=== PATIENT | female | born 1970 | race African-American/Black ===

== ENCOUNTER 2020-10-04 02:19 | Emergency (ER) | payer SELFPAY ==
[2020-10-04 02:20] VITALS: BP 102/75; PULSE 95; RESP 18; TEMP 37; O2SAT 98
--- NOTE | 2020-10-04 02:32 | ECG_ITS ---
Measurements Intervals [place] Rate: 95 P: 67 PA: 141 QRS: -8 QRSD: 70 T: 30 QT: 353 QTc: 444 Interpretive Statements SINUS RHYTHM BORDERLINE T WAVE ABNORMALITY- ANT/INF LEADS BASELINE ARTIFACT- I, II, III, AVR, AVL, AVF, V2 BORDERLINE ECG Electronically Signed On 10-04-2020 8:53:18 SURG NURSE by Jay Dean D.O.
--- NOTE | 2020-10-04 02:35 | ED.SEIZURE ---
HPI - Seizure General Chief Complaint: Seizure Stated Complaint: seizure Time Seen by Provider: 10/04/20 02:26 History of Present Illness HPI Narrative: Patient 49-year-old female who presents to emergency department with chief complaint of seizure. Patient has prior history of a seizure disorder and is currently on Keppra. Per the EMS report the patient had 4 seizures today at home and this is more than she normally has. Patient family does report that she has been compliant with her medications report and use no new symptoms and reports that she is regaining conscious and is back to her baseline mental status Related Data Allergies Allergy/AdvReac Type Severity Reaction Status Date / Time No Known Drug Allergies Allergy Mild Verified 04/09/12 07:36 Review of Systems Review of Systems: Narrative: CONSTITUTIONAL: Denies fever, chills, or sweats. EYES: Denies visual changes, redness, or discharge. ENT: Denies rhinorrhea, congestion, sore throat, or otalgia. CARDIOVASCULAR: Denies chest pain, palpitations, or edema. RESPIRATORY: Denies cough or dyspnea. GASTROINTESTINAL: Denies abdominal pain, nausea, vomiting, or diarrhea. GENITOURINARY: Denies dysuria or hematuria. SKIN: Denies rash or itching. MUSCULOSKELETAL: Denies back pain, joint pain, or myalgia. NEUROLOGIC: Denies headache, numbness, or weakness. PSYCHIATRIC: Denies anxiety or depression. A 10 system review of systems was completed on the patient and is negative except for what is stated in the HPI. Nursing and ancillary documentation was reviewed. PMFSH Comments Past medical history significant for seizure disorder Social history the patient lives with family Exam Narrative: Exam Narrative: GENERAL: Well-appearing, well-nourished, and in no acute distress. HEAD: Normocephalic, atraumatic. EYES: PERRLA and EOMI. ENT: Nares clear, no rhinorrhea or epistaxis. Mucous membranes moist. NECK: Supple. CHEST: Clear to auscultation. No respiratory distress. HEART: Regular rate and rhythm. No murmur heard. Normal peripheral pulses. ABDOMEN: Soft, nontender, nondistended, normal active bowel sounds. EXTREMITIES: Normal range of motion. No edema. SKIN: Warm, dry, no rash. NEURO: No focal deficits. Alert and oriented x3. PSYCH: Normal mood and affect. Course Vital Signs Vital signs: Vital Signs Temperature 37.0 C 11/26/20 02:20 Pulse Rate 95 10/04/20 02:20 Respiratory Rate 18 10/04/20 02:20 Blood Pressure 102/75 10/04/20 02:20 Pulse Oximetry 98 10/04/20 02:20 Temperature 37.0 C 10/04/20 02:20 Pulse Rate 95 10/04/20 02:20 Respiratory Rate 18 10/04/20 02:20 Blood Pressure 102/75 10/04/20 02:20 Pulse Oximetry 98 10/04/20 02:20 MDM - Seizure Lab Data Result diagrams: 10/04/20 02:42 10/04/20 02:42 Labs: Lab Results 10/04/20 10/04/20 10/04/20 Range/Units 02:42 02:42 04:15 WBC 4.4 L (4.5-10.0) K/mm3 RBC 4.59 (4.2-5.4) M/mm3 Hgb 12.9 (12.0-15.0) g/dL Hct 38.6 (37.0-47.0) % MCV 84.1 (80-100) fl MCH 28.1 (26-34) pg MCHC 33.4 (32-36) g/dl RDW 12.3 (11.5-14.5) % Plt Count 187 (150-375) k/mm3 MPV 10.9 H (7.4-10.4) fl Immature Gran % (Auto) 0.2 (0-0.5) % Neut % (Auto) 41.0 L (45.5-73.1) % Lymph % (Auto) 44.2 (18.3-44.2) % [place] % (Auto) 13.5 H (2.6-8.5) % Eos % (Auto) 0.9 (0-4.4) % Baso % (Auto) 0.2 (0.2-1.2) % Lymph # (Auto) 1.93 (0.9-3.2) K/mm3 [place] # (Auto) 0.6 (0.1-0.6) K/mm3 Eos # (Auto) 0.0 (0-0.3) K/mm3 Baso # (Auto) 0.0 (0.0-0.1) K/mm3 Abs Immat Gran (auto) 0.01 (0.00-0.031) K/mm3 Absolute Neuts (auto) 1.8 (1.3-6.7) K/mm3 Absolute Nucleated RBC 0.0 (0.0-0.012) K/mm3 Nucleated RBC % 0.0 (0.0-0.2) % Sodium 142 (137-145) mmol/L Potassium 4.0 (3.4-5.0) mmol/L Chloride 106 (98-107) mmol/L Carbon Dioxide 30 (22-30) mmol/L Anion Gap 6 L (8-16) mm
[2020-10-04 02:48] LABS: Basophils Percent Auto 0.2 % (0.2-1.2); Eosinophils Percent Auto 0.9 % (0-4.4); Hematocrit 38.6 % (37.0-47.0); Hemoglobin 12.9 g/dL (12.0-15.0); Immature Granulocyte Absolute 0.01 K/mm3 (0.00-0.031); Immature Granulocyte Percent A 0.2 % (0-0.5); Lymphocytes Absolute Auto 1.93 K/mm3 (0.9-3.2); Lymphocytes Percent Auto 44.2 % (18.3-44.2); Mean Corpuscular HGB Conc 33.4 g/dl (32-36); Mean Corpuscular Hemoglobin 28.1 pg (26-34); Mean Corpuscular Volume 84.1 fl (80-100); Mean Platelet Volume 10.9 fl (7.4-10.4); Monocytes Absolute Auto 0.6 K/mm3 (0.1-0.6); Monocytes Percent Auto 13.5 % (2.6-8.5); Neutrophils Absolute Auto 1.8 K/mm3 (1.3-6.7); Platelet Count Result 187 k/mm3 (150-375); Red Blood Count 4.59 M/mm3 (4.2-5.4); Red Cell Distribution Width 12.3 % (11.5-14.5); White Blood Count 4.4 K/mm3 (4.5-10.0)
[2020-10-04 03:00] LABS: Alanine Aminotransferase 19 U/L (4-35); Albumin Level 4.2 g/dL (3.5-5.1); Alkaline Phosphatase 65 U/L (38-126); Anion Gap 6 mmol/L (8-16); Aspartate Amino Transferase 25 U/L (14-36); Bilirubin,Total 0.4 mg/dL (0.2-1.3); Blood Urea Nitrogen 14 mg/dL (7-17); Carbon Dioxide 30 mmol/L (22-30); Chloride 106 mmol/L (98-107); Estimated CRCL calculation 57 ml/min; Estimated Glomerular Filt Rate > 60; Glucose 108 mg/dL (65-105); Sodium 142 mmol/L (137-145)
[2020-10-04 04:33] LABS: Add Urine Microscopic? YES; Appearance Urine Clear (Clear); Bilirubin Urine Negative (Negative); Blood Urine Negative (Negative); Color Urine Straw (Yellow); Glucose Urine UA Negative (Negative); Ketones Urine Negative (Negative); Leukocyte Esterase Ur 3+ LEU/UL (Negative); Mucus Urine Rare /lpf; Nitrate Urine Negative (Negative); Protein Urine Negative (Negative); RBC Urine 0-2 /hpf (0-2); Specific Grav Ur 1.014 (1.001-1.035); Squamous Epithelial Cell Urine Few /hpf (Few); Urobilinogen Urine Negative mg/dL (<2.0)
[2020-10-04] MEDS: CEPHALEXIN 500 MG CAPSULE PO (04:56)
--- NOTE | 2020-10-04 04:59 | PC.NURSE ---
Cell number son gave EMS is for a yoel. [place] [employer] called, asked if could check for Annika Brown at [address] [facility] which is the address on the EMS report.
[2020-10-04 05:43] VITALS: BP 112/82; PULSE 78; RESP 16; O2SAT 99
== END 2020-10-04 05:44 | disposition home or self-care (01) ==
PROVIDERS: Emergency Provider Emergency Medicine
DX: G40.909 Epilepsy, unspecified, not intractable, without status epilepticus (principal); N39.0 Urinary tract infection, site not specified; R94.31 Abnormal electrocardiogram [ECG] [EKG]
CPT/HCPCS: 36415; 80053; 81001; 85025; 93005; 99283; A9270

== ENCOUNTER 2021-01-16 10:57 | Emergency (ER) | payer SELFPAY ==
[2021-01-16] VITALS (7 sets, daily range): BP systolic 86–103; BP diastolic 65–76; PULSE 80–95; RESP 17–18; TEMP 37.2; O2SAT 98–99
--- NOTE | ~2021-01-16 | CT_ITS ---
EXAMINATION: CT brain wo con EXAM DATE: 01/16/2021 11:51 INDICATION: Headache, progressing. TECHNIQUE: Spiral CT of the head was performed without contrast. Axial, coronal and sagittal images were reviewed. The dose-length product (DLP) for this examination was 529.67 mGy-cm. The exposure w as tailored according to patient size, and iterative reconstruction (ASIR) was used as additional dos e reduction technique. There is no prior study for comparison. FINDINGS: Moderate cerebellar atrophy. There is no acute intraparenchymal hemorrhage. No evidence of intraparenchymal brain mass lesion. No evidence of acute infarction. There is no mass effect or mi dline shift. The ventricles are normal in size. There are no extra-axial collections. There are no acute calvarial fractures. The orbits are unremarkable. Soft tissue is unremarkable. The visualize d sinuses and mastoid air cells are well aerated. IMPRESSION: 1. No acute intracranial findings. Reviewed, dictated and finalized at location B. R SALES MANAGER
--- NOTE | 2021-01-16 11:21 | ECG_ITS ---
Measurements Intervals [place] Rate: 80 P: 66 OR: 169 QRS: 24 QRSD: 74 T: 73 QT: 310 QTc: 358 Interpretive Statements SINUS RHYTHM RSR' IN V1 OR V2, CONSIDER RIGHT VENTRICULAR HYPERTROPHY OR RIGHT VCD NONSPECIFIC T-WAVE ABNORMALITY- ANTERIOR LEADS BASELINE ARTIFACT- I, II, III, AVR, AVL, AVF BORDERLINE ECG Electronically Signed On 01-16-2021 12:55:35 SED SPECIAL EDUCATION TEACHER by Jay Dean D.O.
[2021-01-16 11:51] LABS: Basophils Percent Auto 0.4 % (0.2-1.2); Eosinophils Percent Auto 0.6 % (0-4.4); Hematocrit 37.3 % (37.0-47.0); Hemoglobin 12.2 g/dL (12.0-15.0); Immature Granulocyte Absolute 0.01 K/mm3 (0.00-0.031); Immature Granulocyte Percent A 0.2 % (0-0.5); Lymphocytes Absolute Auto 1.46 K/mm3 (0.9-3.2); Lymphocytes Percent Auto 29.9 % (18.3-44.2); Mean Corpuscular HGB Conc 32.7 g/dl (32-36); Mean Corpuscular Hemoglobin 27.9 pg (26-34); Mean Corpuscular Volume 85.2 fl (80-100); Mean Platelet Volume 11.1 fl (7.4-10.4); Monocytes Absolute Auto 0.6 K/mm3 (0.1-0.6); Monocytes Percent Auto 12.3 % (2.6-8.5); Neutrophils Absolute Auto 2.8 K/mm3 (1.3-6.7); Neutrophils Percent Auto 56.6 % (45.5-73.1); Platelet Count Result 162 k/mm3 (150-375); Red Blood Count 4.38 M/mm3 (4.2-5.4); Red Cell Distribution Width 13.2 % (11.5-14.5); White Blood Count 4.9 K/mm3 (4.5-10.0)
--- NOTE | 2021-01-16 11:53 | PC.NURSE ---
Spoke with pt's son Annika Brown on the phone at [phone] for reasoning as to why pt is in ED today. Wants a full check up to make sure everything's okay and reports that the main reason is for her headache. States no family will be with her today in the ED, and that they would like a call when she is ready to be picked up.
[2021-01-16 12:03] LABS: Alanine Aminotransferase 24 U/L (4-35); Alkaline Phosphatase 61 U/L (38-126); Anion Gap 7 mmol/L (8-16); Aspartate Amino Transferase 24 U/L (14-36); Bilirubin,Total 0.3 mg/dL (0.2-1.3); Blood Urea Nitrogen 9 mg/dL (7-17); Calcium 9.7 mg/dL (8.4-10.2); Carbon Dioxide 28 mmol/L (22-30); Chloride 107 mmol/L (98-107); Estimated CRCL calculation 60 ml/min; Estimated Glomerular Filt Rate > 60; Glucose 116 mg/dL (65-105); Potassium 3.8 mmol/L (3.4-5.0); Sodium 142 mmol/L (137-145)
[2021-01-16 12:23] LABS: Add Urine Microscopic? NO; Appearance Urine Clear (Clear); Bilirubin Urine Negative (Negative); Blood Urine Negative (Negative); Color Urine Yellow (Yellow); Glucose Urine UA Negative (Negative); Ketones Urine Negative (Negative); Leukocyte Esterase Ur Negative LEU/UL (Negative); Nitrate Urine Negative (Negative); Protein Urine Negative (Negative); Specific Grav Ur 1.012 (1.001-1.035); Urobilinogen Urine Negative mg/dL (<2.0)
[2021-01-16 12:37] LABS: Amphetamine Screen Urine Negative (Negative); Barbiturate Screen Urine Negative (Negative); Benzodiazepines Screen Urine Negative (Negative); Cannabinoid Screen Urine Negative (Negative); Cocaine Screen Urine Negative (Negative); Methadone Screen Urine Negative (Negative); Opiate Screen Urine Negative (Negative); Phencyclidine Screen Urine Negative (Negative)
--- NOTE | 2021-01-16 12:46 | ED.GENADULT ---
HPI - General Adult General Chief complaint: Headache Stated complaint: HEADACHE Time Seen by Provider: 01/16/21 11:01 Source: patient Mode of arrival: EMS Limitations: other (Patient is poor historian and appears to have some mental limitations) History of Present Illness HPI narrative: Patient presents with chief complaint of having some headache that began yesterday. Patient's son called EMS, because he wanted her to be checked out. She reports some frontal headache when asked. Denies photophobia or vertigo. Patient has a history of seizures, but denies having recent seizures or increase. She states she has been taking her medications. She states sometimes she is drowsy and sits around a lot instead of being active. She denies extremity weakness, speech loss or changes, changes in vision or hearing or any other stroke like symptoms. She denies chest pain. fever, chills, cough, SOB, vomiting, or diarrhea. Related Data Home Medications Medication Instructions Recorded Confirmed citalopram mg 01/16/21 levetiracetam PO 01/16/21 Allergies Allergy/AdvReac Type Severity Reaction Status Date / Time No Known Drug Allergies Allergy Mild Verified 04/09/12 07:36 Review of Systems Review of Systems: Narrative: CONSTITUTIONAL: Denies fever, chills, or sweats. EYES: Denies visual changes, redness, or discharge. ENT: Denies rhinorrhea, congestion, sore throat, or otalgia. CARDIOVASCULAR: Denies chest pain, palpitations, or edema. RESPIRATORY: Denies cough or dyspnea. GASTROINTESTINAL: Denies abdominal pain, nausea, vomiting, or diarrhea. GENITOURINARY: Denies dysuria or hematuria. SKIN: Denies rash or itching. MUSCULOSKELETAL: Denies back pain, myalgia, or joint pain NEUROLOGIC: Reports headache and some fatigue Denies numbness, dizziness, or weakness. PSYCHIATRIC: Denies anxiety or depression. Exam Narrative: Exam Narrative: GENERAL: Well-appearing, well-nourished. HEAD: Normocephalic, atraumatic.No hematomas or lacerations. EYES: PERRLA and EOMI. ENT: Nares clear, no rhinorrhea or epistaxis. Mucous membranes moist. Oropharynx without tonsillar hypertrophy exudate or other lesions. Bilateral TMs pearly albarran nonbulging. No tongue or oral bleeding or sign of recent injury. NECK: Supple. No adenopathy or masses. No vertebral tenderness or loss of ROM. CHEST: Clear to auscultation. No respiratory distress. No wheezes rales or rhonchi HEART: Regular rate and rhythm. Normal peripheral pulses. ABDOMEN: Soft, nontender, nondistended, normal active bowel sounds. No bruises noted. EXTREMITIES: No acute changes in ROM. No edema. SKIN: Warm, dry, no rash. NEURO: No focal deficits. Moves all extremities with equal strength. No facial asymmetry. Alert to person and that she is in the hospital. Not sure why she was sent to the ER, besides son called Patient does not know the date. Patient speaks without difficulty. PSYCH: Normal mood and affect. Course Vital Signs Vital signs: Vital Signs Temperature 99 F 01/16/21 10:59 Pulse Rate 89 01/16/21 10:59 Respiratory Rate 17 01/16/21 10:59 Blood Pressure 92/75 L 01/16/21 10:59 Pulse Oximetry 98 01/16/21 10:59 Temperature 99 F 01/16/21 10:59 Pulse Rate 84 01/16/21 16:36 Respiratory Rate 18 01/16/21 16:36 Blood Pressure 92/71 L 01/16/21 16:36 Pulse Oximetry 99 01/16/21 16:36 Medical Decision Making MDM Narrative Medical decision making narrative: We have continue to reach out to family as they are to initiate his inpatient EMS call. Patient has been stable and her neurologic function since during her ER visit. Patient has not displayed any signs of seizures. Patient is head CT and lab work and urine analysis are without emergent concern. Family stated originally they were coming to the emergency department however they have still not shown. Patient will be discharged home with instructions to follow-up with her primary care. Vital Signs Vital
--- NOTE | 2021-01-16 14:45 | PC.NURSE ---
Left message with Annika for him to call us back about transporting mom home.
--- NOTE | 2021-01-16 15:35 | PC.NURSE ---
Unable to reach Annika Brown at [phone] to discuss transport of mother.
--- NOTE | 2021-01-16 15:38 | PC.NURSE ---
Alternative phone for Annika used ([phone]). States he will be here in 15 min.
== END 2021-01-16 16:20 | disposition home or self-care (01) ==
PROVIDERS: Physician Assistant; Emergency Provider Emergency Medicine; PCP Emergency Medicine
DX: R51.9 Headache, unspecified (principal)
CPT/HCPCS: 36415; 51701; 70450; 80053; 80307; 81003; 85025; 93005; 99284

== ENCOUNTER 2021-01-28 17:04 | Inpatient (IN) | payer SELFPAY ==
--- NOTE | ~2021-01-28 | CT_ITS ---
EXAMINATION: CT brain wo [facility] EXAM DATE: 01/28/2021 21:48 INDICATION: Uncontrolled seizures. TECHNIQUE: Spiral CT of the head was performed without contrast. Axial, coronal and sagittal images were reviewed. The dose-length product (DLP) for this examination was 529.67 mGy-cm. The exposure w as tailored according to patient size, and iterative reconstruction (ASIR) was used as additional dos e reduction technique. Comparison is made to prior examination from 01/17/2020. FINDINGS: Significant cerebellar atrophy. There is no acute intraparenchymal hemorrhage. No evidence of intraparenchymal brain mass lesion. No evidence of acute infarction. There is no mass effect or midline shift. The ventricles are normal in size. There are no extra-axial collections. There are no acute calvarial fractures. The orbits are unremarkable. Soft tissue is unremarkable. The visual ized sinuses and mastoid air cells are well aerated. IMPRESSION: 1. No acute intracranial findings. 2. Cerebellar atrophy. Reviewed, dictated and finalized at location A.
[2021-01-28 17:06] VITALS: BP 98/70; PULSE 81; PULSE 84; RESP 21; TEMP 36.9; O2SAT 98
--- NOTE | 2021-01-28 17:08 | ECG_ITS ---
Measurements Intervals [place] Rate: 83 P: 61 OR: 148 QRS: -2 QRSD: 77 T: 57 QT: 373 QTc: 441 Interpretive Statements SINUS RHYTHM RSR' IN V1 OR V2, CONSIDER RIGHT VENTRICULAR HYPERTROPHY OR RIGHT VCD NONSPECIFIC T-WAVE ABNORMALITY- ANTERIOR LEADS BASELINE ARTIFACT- I, II, III, AVR, AVF, V1-V2 BORDERLINE ECG Electronically Signed On 01-29-2021 6:51:42 CDT by Jay Dean D.O.
--- NOTE | 2021-01-28 17:10 | ED.SEIZURE ---
HPI - Seizure General Chief Complaint: Seizure Stated Complaint: SEIZURES Time Seen by Provider: 01/28/21 17:07 History of Present Illness HPI Narrative: 50 yo female presents to the ED for seizure. Per EMS her roommate witnessed 3 seizures today. Unknown how long they lasted. She reportedly has a history of seizures and may have had one yesterday as well. On arrival she is still mildly post ictal and history is significantly limited. She says that she takes Dilantin and has not missed any doses. According to our records she is on Keppra. She reports that her arms hurt, but denies any other complaints at this time. Related Data Home Medications Medication Instructions Recorded Confirmed citalopram mg 01/28/21 ergocalciferol (vitamin D2) 01/28/21 01/28/21 levetiracetam PO 01/28/21 Allergies Allergy/AdvReac Type Severity Reaction Status Date / Time No Known Drug Allergies Allergy Mild Unknown Verified 01/28/21 17:20 Review of Systems Review of Systems: ROS unobtainable: Yes unobtainable due to mental status PMFSH Past Medical History Medical History Seizure Exam Const: General: healthy appearing, no acute distress and alert HENMT: Head: normal to inspection, no contusions and no lacerations Eyes: Conjunctivae: conjunctivae normal Pupils: Equal, round and reactive pupils present EOM: EOMs intact bilaterally Resp: Effort & Inspection: normal respiratory effort Auscultation: clear to auscultation bilaterally Cardio: Rate: regular rate Rhythm: regular rhythm Skin: General skin exam: normal color Wounds: no wounds Neuro: General: moves all extremities, no focal motor deficits and CN's II-XI intact bilaterally Cranial nerves: Yes Nystagmus not present Speech: normal speech Other: oriented to self and type of place. Extrem: General: normal to inspection Course Vital Signs Vital signs: Vital Signs Temperature 36.9 C 01/28/21 17:06 Pulse Rate 81 01/28/21 17:06 Respiratory Rate 21 H 01/28/21 17:06 Blood Pressure 98/70 L 01/28/21 17:06 Pulse Oximetry 98 01/28/21 17:06 Temperature 36.9 C 01/28/21 17:06 Pulse Rate 87 01/28/21 18:00 Respiratory Rate 20 01/28/21 18:00 Blood Pressure 116/84 01/28/21 18:00 Pulse Oximetry 96 01/28/21 20:50 MDM - Seizure MDM Narrative Medical decision making narrative: She seems to have very poorly controlled seizures and denies having any current neurologist. She has had 2 witnessed seizures in the ED tonight. Neurology consulted. I will load her with Keppra, order and EEG for tomorrow and admit. Differential Diagnosis Differential diagnosis: Likely generalized seizure, epileptic seizure and other Medical Records Attestation: I reviewed the patient's medical records. Lab Data Attestation: I reviewed the patient's lab results. Result diagrams: 01/28/21 20:32 01/28/21 20:32 Labs: Lab Results 01/28/21 01/28/21 01/28/21 Range/Units 20:13 20:13 20:32 WBC 5.0 (4.5-10.0) K/mm3 RBC 3.87 L (4.2-5.4) M/mm3 Hgb 11.0 L (12.0-15.0) g/dL Hct 33.4 L (37.0-47.0) % MCV 86.3 (80-100) fl MCH 28.4 (26-34) pg MCHC 32.9 (32-36) g/dl RDW 13.0 (11.5-14.5) % Plt Count 167 (150-375) k/mm3 MPV 10.6 H (7.4-10.4) fl Immature Gran % (Auto) 0.2 (0-0.5) % Neut % (Auto) 64.1 (45.5-73.1) % Lymph % (Auto) 23.9 (18.3-44.2) % [place] % (Auto) 10.6 H (2.6-8.5) % Eos % (Auto) 0.8 (0-4.4) % Baso % (Auto) 0.4 (0.2-1.2) % Lymph # (Auto) 1.19 (0.9-3.2) K/mm3 [place] # (Auto) 0.5 (0.1-0.6) K/mm3 Eos # (Auto) 0.0 (0-0.3) K/mm3 Baso # (Auto) 0.0 (0.0-0.1) K/mm3 Abs Immat Gran (auto) 0.01 (0.00-0.031) K/mm3 Absolute Neuts (auto) 3.2 (1.3-6.7) K/mm3 Absolute Nucleated RBC 0.0 (0.0-0.012) K/mm3 Nucleated RBC % 0.0 (0.0-0.2) % Sodium (137-145) mmol/L Potassium (3.4-5.
[2021-01-28 17:17] VITALS: BP 98/70; PULSE 84; RESP 17; O2SAT 100
[2021-01-28 17:54] VITALS: BP 111/72; PULSE 83; RESP 19; O2SAT 100
[2021-01-28 18:00] VITALS: BP 116/84; PULSE 87; RESP 20
--- NOTE | 2021-01-28 18:04 | PC.NURSE ---
Two unsuccessful attempts at initiating an IV. Seeking another RN to attempt.
--- NOTE | 2021-01-28 18:45 | PC.NURSE ---
ATTEMPTED IV ACCESS X4 NURSES WITH NO SUCCESS. DR BHATTI TO ATTEMPT ULTRASOUND IV ACCESS
--- NOTE | 2021-01-28 19:14 | PC.NURSE ---
Nurse promotion writer and EDMD presented to bedside as pt was observed having a seizure. Pt was actively convulsing. Seizure activity lasted approx 30 seconds. Pt responsive but confused in post ictal state. Vitals are stable and in pt in no obvious distress at this time. EDMD gave verbal order for IV keppra. Pt now resting on cart in its lowest position with call button and personal items within reach. Will continue to observe.
[2021-01-28] MEDS: SODIUM CHLORIDE 0.9% IV 500 ML 999 ML IV CONT (19:19)
[2021-01-28] MEDS: levETIRAcetam 1000MG/NACL100ML 1,000 MG/100 ML BAG 400 MG IVPB (20:03)
--- NOTE | 2021-01-28 20:09 | PC.NURSE ---
Pt assisted on and off of bedpan and urine specimen obtained and sent to lab. Pt resting on cart in its lowest position with call button and personal items within reach. Pt calm and cooperative at this time.
[2021-01-28 20:27] LABS: Add Urine Microscopic? YES; Appearance Urine Cloudy (Clear); Bilirubin Urine Negative (Negative); Color Urine Yellow (Yellow); Glucose Urine UA Negative (Negative); Ketones Urine Negative (Negative); Leukocyte Esterase Ur 3+ LEU/UL (Negative); Nitrate Urine Negative (Negative); Protein Urine 1+ mg/dL (Negative); Specific Grav Ur 1.016 (1.001-1.035); Squamous Epithelial Cell Urine Occasional /hpf (Few); Urobilinogen Urine Negative mg/dL (<2.0); WBC Urine >75 /hpf
[2021-01-28 20:30] LABS: Blood Urine Negative (Negative)
[2021-01-28 20:36] LABS: Barbiturate Screen Urine Negative (Negative); Benzodiazepines Screen Urine Negative (Negative)
[2021-01-28 20:38] LABS: Basophils Percent Auto 0.4 % (0.2-1.2); Eosinophils Percent Auto 0.8 % (0-4.4); Hematocrit 33.4 % (37.0-47.0); Immature Granulocyte Absolute 0.01 K/mm3 (0.00-0.031); Immature Granulocyte Percent A 0.2 % (0-0.5); Lymphocytes Absolute Auto 1.19 K/mm3 (0.9-3.2); Lymphocytes Percent Auto 23.9 % (18.3-44.2); Mean Corpuscular HGB Conc 32.9 g/dl (32-36); Mean Corpuscular Hemoglobin 28.4 pg (26-34); Mean Corpuscular Volume 86.3 fl (80-100); Mean Platelet Volume 10.6 fl (7.4-10.4); Monocytes Absolute Auto 0.5 K/mm3 (0.1-0.6); Monocytes Percent Auto 10.6 % (2.6-8.5); Neutrophils Absolute Auto 3.2 K/mm3 (1.3-6.7); Neutrophils Percent Auto 64.1 % (45.5-73.1); Platelet Count Result 167 k/mm3 (150-375); Red Blood Count 3.87 M/mm3 (4.2-5.4)
[2021-01-28 20:39] LABS: Amphetamine Screen Urine Negative (Negative); Cannabinoid Screen Urine Negative (Negative); Cocaine Screen Urine Negative (Negative); Methadone Screen Urine Negative (Negative); Opiate Screen Urine Negative (Negative); Phencyclidine Screen Urine Negative (Negative)
[2021-01-28 20:49] LABS: Ethanol < 10 mg/dL (<10)
[2021-01-28 20:50] VITALS: O2SAT 96
[2021-01-28 20:52] LABS: Alanine Aminotransferase 49 U/L (4-35); Albumin Level 3.6 g/dL (3.5-5.1); Alkaline Phosphatase 62 U/L (38-126); Anion Gap 1 mmol/L (8-16); Aspartate Amino Transferase 43 U/L (14-36); Bilirubin,Total < 0.1 mg/dL (0.2-1.3); Blood Urea Nitrogen 12 mg/dL (7-17); Calcium 8.8 mg/dL (8.4-10.2); Carbon Dioxide 28 mmol/L (22-30); Chloride 111 mmol/L (98-107); Estimated Glomerular Filt Rate > 60; Glucose 98 mg/dL (65-105); Potassium 4.2 mmol/L (3.4-5.0); Sodium 140 mmol/L (137-145)
[2021-01-28 20:59] LABS: Phenytoin Dilantin < 3 ug/mL (10-20)
--- NOTE | 2021-01-28 21:03 | PC.NURSE ---
Pt making noises and having active seizure, rigid and salivating at this time. Placed in bed and EDP notified. Sz pads in place. Pt on tele monitor. Lasted aprox [address] Clements at bedside.
--- NOTE | 2021-01-28 21:34 | PC.NURSE ---
Dr. Simmons presented to bedside. No orders given.
--- NOTE | 2021-01-28 21:46 | PC.NURSE ---
Pt to and from CT and is now back in room resting on cart with call button and personal items within reach.
--- NOTE | 2021-01-28 22:07 | PM.IMHP ---
H&P: HPI History of Present Illness Date/Time: 01/28/21 22:07 Chief Complaint: Acute Seizures Narrative: This is a 50 year old female with known seizure disorder who presented to the hospital with a complaint of #3 seizures today per her roommate. The patient could not give any history or answer any questions when assessed in the ER and while there experienced two more seizures. She was treated with IV ativan and loaded with Keppra IV. On my arrival to bedside the patient is postictal and very sleepy. Currently she cannot reliably answer any questions. She has no complaints. Brain CT was obtained and was unremarkable. Neurology, Dr. Hernandez has been consulted by ER provider and has asked that we admit the patient to the hospital and he will evaluate her in the morning. EEG has been ordered. Review of Systems Review of Systems: ROS unobtainable: Yes unobtainable due to medical condition PMFSH Past Medical History Medical History Seizure Comments Past medical/surgical/social/family histories are unobtainable secondary to the patient's medical condition. Meds Home Medications and Allergies Home Medications Medication Instructions Recorded Confirmed Type citalopram mg 01/28/21 History ergocalciferol (vitamin D2) 01/28/21 01/28/21 History levetiracetam PO 01/28/21 History Allergies Allergy/AdvReac Type Severity Reaction Status Date / Time No Known Drug Allergies Allergy Mild Unknown Verified 01/28/21 17:20 Vital Signs Vital Signs - 24 hr 01/28/21 17:06 01/28/21 17:17 01/28/21 17:54 Temperature 36.9 C Pulse Rate 84 84 83 Respiratory Rate 21 H 17 19 Blood Pressure 98/70 L 98/70 L 111/72 Pulse Oximetry 98 100 100 01/28/21 18:00 01/28/21 20:50 Temperature Pulse Rate 87 Respiratory Rate 20 Blood Pressure 116/84 Pulse Oximetry 96 Exam Const: General: no acute distress and other (post-ictal+ somnolent+ ) Nutritional Appearance: well nourished Orientation/consciousness: Other orientation findings (postictal) HENMT: Head: normal to inspection General nose exam: Normal external nose present Face and sinus: normal facial exam Mouth: Yes Normal oral and palatal mucosa present, No tongue normal (left side tongue laceration+ ) and Yes oropharynx normal Eyes: Pupils: Equal, round and reactive pupils present Neck: Neck: supple and no JVD Thyroid: thyroid normal Lymphatic: lymphadenopathy not noted Resp: Effort & Inspection: normal respiratory effort Auscultation: clear to auscultation bilaterally Cardio: Rate: regular rate Rhythm: regular rhythm Heart sounds: no murmurs GI: Inspection: normal to inspection Auscultation: normal bowel sounds Skin: General skin exam: normal color and no rashes or lesions noted Neuro: Cranial nerves: Yes Equal, round and reactive pupils present Extrem: General: normal to inspection and no edema H&P: Results Labs Labs: Short CBC 01/28/21 Range/Units 20:32 WBC 5.0 (4.5-10.0) K/mm3 Hgb 11.0 L (12.0-15.0) g/dL Hct 33.4 L (37.0-47.0) % Plt Count 167 (150-375) k/mm3 BMP 01/28/21 20:32 Sodium 140 Potassium 4.2 Chloride 111 H Carbon Dioxide 28 BUN 12 Creatinine 0.70 Glucose 98 Calcium 8.8 Liver Function 01/28/21 Range/Units 20:32 Total Bilirubin < 0.1 L (0.2-1.3) mg/dL AST 43 H (14-36) U/L ALT 49 H (4-35) U/L Alkaline Phosphatase 62 (38-126) U/L Albumin 3.6 (3.5-5.1) g/dL Urine 01/28/21 Range/Units 20:13 Urine Color Yellow (Yellow) Urine Appearance Cloudy H (Clear) Urine pH 7.0 (5.0-9.0) Ur Specific [place] 1.016 (1.001-1.035) Urine Protein 1+ H (Negative) mg/dL Urine Glucose (UA) Negative (Negative) mg/dL Imaging CT scan - head: Radiologist's impression: 1. No acute intracranial findings. 2. Cerebellar atrophy. Assessment and Plan Assessment and plan (1) Rodo
[2021-01-28 22:30] VITALS: BP 108/76; PULSE 85; RESP 18; TEMP 36.9; O2SAT 97
--- NOTE | 2021-01-28 22:32 | PC.NURSE ---
DAVID faxed to [address] [place] [address].
--- NOTE | 2021-01-28 22:58 | PC.NURSE ---
Pt resting on cart with call button and personal items within reach. Pt in no obvious distress. Advised to press call button for assistance.
[2021-01-28] MEDS: LORazepam INJ (*CRX) 2 MG/ML VIAL 1 MG IV PUSH (23:32)
[2021-01-29] VITALS (7 sets, daily range): BP systolic 104–121; BP diastolic 66–76; PULSE 68–96; RESP 16–21; TEMP 36.2–37.3; O2SAT 95–100
--- NOTE | 2021-01-29 00:08 | ADMGEN ---
This patient, Niya Brown, was admitted to Medical Room 258-. Patient/family oriented to hospital policies and general routines including ID bracelet, bed and alarms, visiting hours, pain management, procedures, bathroom and other care routines, personal items, smoking policy, room service/diet, and visiting hours. Information on how to activate the Rapid Response Team has been discussed. Patient/Family are encouraged to report perceived risks to care and to ask questions if they do not understand what they are told or what they should do.
[2021-01-29 05:23] LABS: Basophils Percent Auto 0.6 % (0.2-1.2); Eosinophils Absolute Auto 0.1 K/mm3 (0-0.3); Eosinophils Percent Auto 1.3 % (0-4.4); Hematocrit 33.6 % (37.0-47.0); Immature Granulocyte Absolute 0.01 K/mm3 (0.00-0.031); Immature Granulocyte Percent A 0.2 % (0-0.5); Lymphocytes Percent Auto 38.2 % (18.3-44.2); Mean Corpuscular HGB Conc 32.7 g/dl (32-36); Mean Corpuscular Hemoglobin 27.6 pg (26-34); Mean Corpuscular Volume 84.4 fl (80-100); Monocytes Absolute Auto 0.6 K/mm3 (0.1-0.6); Monocytes Percent Auto 11.9 % (2.6-8.5); Neutrophils Absolute Auto 2.3 K/mm3 (1.3-6.7); Neutrophils Percent Auto 47.8 % (45.5-73.1); Platelet Count Result 165 k/mm3 (150-375); Red Blood Count 3.98 M/mm3 (4.2-5.4); Red Cell Distribution Width 12.8 % (11.5-14.5); White Blood Count 4.7 K/mm3 (4.5-10.0)
[2021-01-29 05:44] LABS: Alanine Aminotransferase 49 U/L (4-35); Albumin Level 3.4 g/dL (3.5-5.1); Alkaline Phosphatase 58 U/L (38-126); Anion Gap 5 mmol/L (8-16); Aspartate Amino Transferase 41 U/L (14-36); Bilirubin,Total 0.1 mg/dL (0.2-1.3); Blood Urea Nitrogen 9 mg/dL (7-17); Calcium 9.1 mg/dL (8.4-10.2); Carbon Dioxide 26 mmol/L (22-30); Chloride 110 mmol/L (98-107); Estimated Glomerular Filt Rate > 60; Glucose 88 mg/dL (65-105); Magnesium 1.8 mg/dL (1.6-2.3); Potassium 3.8 mmol/L (3.4-5.0); Sodium 141 mmol/L (137-145)
[2021-01-29] MEDS: SODIUM CHLORIDE 0.9% IV 1,000 ML 100 ML IV CONT ×2 (09:37)
[2021-01-29] MEDS: levETIRAcetam 1000MG/NACL100ML 1,000 MG/100 ML BAG 400 MG IVPB ×2 (09:39→21:12)
--- NOTE | 2021-01-29 10:00 | PC.NURSE ---
Dr. Benitez on floor and reports okay to advance diet to soft and bite size.
--- NOTE | 2021-01-29 11:01 | WPDNEURCNPN ---
Assessment and Plan Assessment and plan (1) Uncontrolled seizures: Qualifiers: Convulsion type: unspecified Qualified Code(s): R56.9 - Unspecified convulsions Code(s): R56.9 - Unspecified convulsions Status: Acute (2) Seizure disorder: Code(s): G40.909 - Epilepsy, unspecified, not intractable, without status epilepticus Status: Acute Additional Plan nonepileptic admitted for the breakthrough seizures at present receiving Keppra treatment will be continued as such in addition will obtain the EEG, discuss further Consult date: 01/29/21 Time Seen: 09:30 HPI: Niya Brown is a 50 year old female has been admitted to the hospital for the complaints of recurrence of the seizures. His known epileptic has been on the anticonvulsant for long duration initially she was evaluated in the emergency room and was treated accordingly with IV Ativan and Keppra subsequently she was noted to be postictal on the floor but on today's visit she is awake alert and has been able to tell me that she has epilepsy for long duration . evaluation up until now includes the CBC with no evidence of leukopenia or leukocytosis hemoglobin 11.0 with platelet count of 165, normal basic metabolic panel, borderline elevation of the hepatic enzymes with albumin only 3.4, UA abnormal, initial phenytoin level only less than 3, and drug screen negative, CT of the head revealed only cerebellar atrophy but no evidence of any congenital abnormalities, patient is receiving ceftriaxone in addition to leave a transit time 1000 mg IV piggyback q.12 hours. Review of Systems Review of Systems: All systems reviewed & are unremarkable except as noted in HPI and below PMFSH Past Medical History Medical History Seizure Family History Family History Other Unknown family medical history Social History Social History Smoking status: Never smoker Alcohol intake: never Substance use: never Gender identity (if verbalized by the patient): Female Spiritual care concerns: No Meds Home Medications and Allergies Home Medications Medication Instructions Recorded Confirmed Type citalopram 40 mg PO DAILY 01/28/21 01/29/21 History ergocalciferol (vitamin D2) 50,000 unit PO WEEKLY 01/28/21 01/29/21 History levetiracetam 1,000 mg PO BID 01/28/21 01/29/21 History Allergies Allergy/AdvReac Type Severity Reaction Status Date / Time No Known Drug Allergies Allergy Mild Unknown Verified 01/28/21 17:20 Vital Signs Vital Signs - 24 hr 01/28/21 17:06 01/28/21 17:17 01/28/21 17:54 Temperature 36.9 C Pulse Rate 84 84 83 Respiratory Rate 21 H 17 19 Blood Pressure 98/70 L 98/70 L 111/72 Pulse Oximetry 98 100 100 01/28/21 18:00 01/28/21 20:50 01/28/21 22:30 Temperature 36.9 C Pulse Rate 87 85 Respiratory Rate 20 18 Blood Pressure 116/84 108/76 Pulse Oximetry 96 97 01/29/21 00:00 01/29/21 04:00 01/29/21 06:00 Temperature 36.6 C 36.2 C L Pulse Rate 69 68 77 Respiratory Rate 20 21 H Blood Pressure 104/67 113/76 Pulse Oximetry 98 100 Exam Const: General: cooperative, comfortable, awake and tired appearing Nutritional Appearance: thin Orientation/consciousness: oriented to person HENMT: Head: normocephalic and atraumatic Ears: hearing grossly normal bilaterally General nose exam: Normal external nose present Face and sinus: normal facial exam Mouth: Yes Normal oral and palatal mucosa present Eyes: General: appearance normal, both eyes and all related structures Neck: Neck: full ROM and no meningeal signs Resp: Effort & Inspection: normal respiratory effort Auscultation: clear to auscultation bilaterally Cardio: Rate: regular rate Rhythm: regular rhythm GI: Auscultation: normal bowel sounds Skin: General skin exam: no rashes or lesions noted N
--- NOTE | 2021-01-29 12:09 | WPDNEUROLOGY ---
Neurology EEG Report General Information Date of Study: 01/29/21 TEST eeg DIAGNOSIS seizures CONDITION OF RECORDING drowsy and sleepy EEG NUMBER [id number] CLINICAL HISTORY patient was unable to explain why she was here EEG DESCRIPTION basic resting occipital frequency consists of poorly organized low to medium voltage 8 to 10 hertz per second alpha admixed with multiple muscle artifacts. Bilateral symmetrical sleep activity seen during sleep with EKG artifact as well. Hyperventilation not done photic stimulation not done. Non paroxysmal. Nonfocal. Nonlateralizing. IMPRESSION No significant abnormalities noted though this particular tracing is compromised by multiple muscle artifacts.
--- NOTE | 2021-01-29 13:24 | PM.IMPN ---
Progress Note: A&P Assessment and Plan (1) Seizure disorder: Code(s): G40.909 - Epilepsy, unspecified, not intractable, without status epilepticus Status: Acute Assessment and Plan: The patient has been placed in observation status. neurology consulted pt started on keppra. (2) Abnormal urinalysis: Code(s): R82.90 - Unspecified abnormal findings in urine Status: Acute Assessment and Plan: r/o UTI. Continue ceftriaxone, await UC (3) Normocytic anemia: Code(s): D64.9 - Anemia, unspecified Status: Acute Assessment and Plan: Acute vs. Chronic. Hb is 11 (4) Transaminitis: Code(s): R74.01 - Elevation of levels of liver transaminase levels Status: Acute Assessment and Plan: Mild transaminitis may be secondary to acute seizures. continue to watch. Subjective Date/time seen: 01/29/21 13:24 Interval history: 50 year old female with known seizure disorder who presented to the hospital with a complaint of #3 seizures today per her roommate. Pt is here for seizure. consult neurology. pt started on keppra continue to watch. Review of Systems Review of Systems: ROS unobtainable: Yes unobtainable due to medical condition Exam Const: General: no acute distress and other (post-ictal+ somnolent+ ) Nutritional Appearance: well nourished Orientation/consciousness: Other orientation findings (postictal) Resp: Effort & Inspection: normal respiratory effort Auscultation: clear to auscultation bilaterally Cardio: Rate: regular rate Rhythm: regular rhythm Heart sounds: no murmurs GI: Inspection: normal to inspection Auscultation: normal bowel sounds Skin: General skin exam: normal color and no rashes or lesions noted Neuro: Cranial nerves: Yes Equal, round and reactive pupils present Extrem: General: normal to inspection and no edema Objective Data Vital Signs Vital Signs: Vital Signs - 24 hr 01/28/21 17:06 01/28/21 17:17 01/28/21 17:54 Temperature 36.9 C Pulse Rate 84 84 83 Respiratory Rate 21 H 17 19 Blood Pressure 98/70 L 98/70 L 111/72 Pulse Oximetry 98 100 100 01/28/21 18:00 01/28/21 20:50 01/28/21 22:30 Temperature 36.9 C Pulse Rate 87 85 Respiratory Rate 20 18 Blood Pressure 116/84 108/76 Pulse Oximetry 96 97 01/29/21 00:00 01/29/21 04:00 01/29/21 06:00 Temperature 36.6 C 36.2 C L Pulse Rate 69 68 77 Respiratory Rate 20 21 H Blood Pressure 104/67 113/76 Pulse Oximetry 98 100 01/29/21 09:00 01/29/21 12:00 Temperature Pulse Rate 82 87 Respiratory Rate Blood Pressure Pulse Oximetry Intake/Output Intake/Output: Intake & Output 01/26/21 01/27/21 01/28/21 01/29/21 23:59 23:59 23:59 23:59 Intake Total 650 1340 Output Total 800 Balance 650 540 Meds/Results Medications: Active Medications Generic Name Dose Route Start Last Admin Trade Name Freq PRN Reason Stop Dose Admin Ceftriaxone Sodium/Dextrose 1 gm in 50 mls @ 100 mls/hr 01/29/21 21:00 Rocephin 1 Gm/D5w 50 Ml IVPB Q24H CATALINA Sodium Chloride 1,000 mls @ 100 mls/hr 01/28/21 22:25 01/29/21 09:37 Normal Saline Iv IV CONT 100 mls/hr .Q10H CAT[place]INA Administration Levetiracetam 1,000 mg in 100 mls @ 400 mls/hr 01/29/21 09:00 01/29/21 09:55 Keppra Iv IVPB Infused Q12HR [place]INA Infusion Radiology Results: ITS Impressions Head CT 01/28/21 21:49 IMPRESSION: 1. No acute intracranial findings. 2. Cerebellar atrophy. Labs Labs: Laboratory Results - last 24 hr 01/28/21 01/28/21 01/28/21 20:13 20:13 20:32 WBC 5.0 RBC 3.87 L Hgb 11.0 L Hct 33.4 L MCV 86.3 MCH 28.4 MCHC 32.9 RDW 13.0 Plt Count 167 MPV 10.6 H Immature Gran % (Auto) 0.2 Neut % (Auto) 64.1 Lymph % (Auto) 23.9 [place] % (Auto) 10.6 H Eos % (Auto) 0.8 Baso % (Auto) 0.4 Lymph # (Auto) 1.19 [place] # (Auto) 0.5 Eos # (Auto) 0.0 Baso
--- NOTE | 2021-01-29 14:16 | PC.NURSE ---
[facility] Header called Dr. Benitez regarding fluids pt tolerating po fluids well, she is up to urinate frequently which is frustrating to her. Urine is completely clear. N.O may saline lock
[2021-01-30 05:31] LABS: Hematocrit 37.5 % (37.0-47.0); Hemoglobin 12.3 g/dL (12.0-15.0); Mean Corpuscular HGB Conc 32.8 g/dl (32-36); Mean Corpuscular Hemoglobin 27.7 pg (26-34); Mean Corpuscular Volume 84.5 fl (80-100); Mean Platelet Volume 10.7 fl (7.4-10.4); Platelet Count Result 191 k/mm3 (150-375); Red Blood Count 4.44 M/mm3 (4.2-5.4); White Blood Count 4.9 K/mm3 (4.5-10.0)
[2021-01-30 05:39] VITALS: BP 104/72; PULSE 88; RESP 14; TEMP 37.2; O2SAT 99
[2021-01-30 05:44] LABS: Anion Gap 3 mmol/L (8-16); Blood Urea Nitrogen 6 mg/dL (7-17); Calcium 9.9 mg/dL (8.4-10.2); Carbon Dioxide 29 mmol/L (22-30); Chloride 108 mmol/L (98-107); Estimated Glomerular Filt Rate > 60; Glucose 110 mg/dL (65-105); Sodium 140 mmol/L (137-145)
[2021-01-30] MEDS: levETIRAcetam 1000MG/NACL100ML 1,000 MG/100 ML BAG 400 MG IVPB (08:28)
[2021-01-30 09:30] VITALS: RESP 16; O2SAT 99
--- NOTE | 2021-01-30 11:34 | PM.DS ---
DS: Admitting Diagnosis Admitting Diagnosis Admitting Diagnosis: Acute Seizures DS: Discharge Diagnosis Discharge Diagnosis (1) Seizure disorder: Code(s): G40.909 - Epilepsy, unspecified, not intractable, without status epilepticus Status: Acute Assessment and Plan: The patient has been placed in observation status. neurology consulted pt started on keppra iv can transition back to oral keppra. (2) Abnormal urinalysis: Code(s): R82.90 - Unspecified abnormal findings in urine Status: Acute Assessment and Plan: r/o UTI. Continue ceftriaxone, UC is negative. Pt can be discharged off oral abx. (3) Normocytic anemia: Code(s): D64.9 - Anemia, unspecified Status: Acute Assessment and Plan: Acute vs. Chronic. Hb is 11 (4) Transaminitis: Code(s): R74.01 - Elevation of levels of liver transaminase levels Status: Acute Assessment and Plan: Mild transaminitis DS: Summary Hospital Course Hospital Course: 50 year old female with known seizure disorder who presented to the hospital with a complaint of #3 seizures today per her roommate. Pt is here for seizure. consult neurology. Pt started on IV keppra, transition to oral keppra and discharge, pt has had no further seizures, pt had EEG while in the hospital. Time Spent with Patient Time attestation: Total time spent providing and/or coordinating discharge services:40 minutes on day of dischrage Exam Const: General: cooperative, healthy appearing and comfortable Nutritional Appearance: well nourished HENMT: Head: normal to inspection General nose exam: Normal external nose present Face and sinus: normal facial exam Mouth: Yes Normal oral and palatal mucosa present and Yes oropharynx normal Eyes: Pupils: Equal, round and reactive pupils present Neck: Neck: supple and no JVD Thyroid: thyroid normal Lymphatic: lymphadenopathy not noted Resp: Effort & Inspection: normal respiratory effort Auscultation: clear to auscultation bilaterally Cardio: Rate: regular rate Rhythm: regular rhythm Heart sounds: no murmurs GI: Inspection: normal to inspection Auscultation: normal bowel sounds Skin: General skin exam: normal color and no rashes or lesions noted Neuro: Cranial nerves: Yes Equal, round and reactive pupils present Extrem: General: normal to inspection and no edema DS: Data Data Completed and Pending Labs on day of discharge: Labs from last 24 hours 01/30/21 01/30/21 05:25 05:25 WBC 4.9 RBC 4.44 Hgb 12.3 Hct 37.5 MCV 84.5 MCH 27.7 MCHC 32.8 RDW 13.0 Plt Count 191 MPV 10.7 H Sodium 140 Potassium 4.0 Chloride 108 H Carbon Dioxide 29 Anion Gap 3 L BUN 6 L Creatinine 0.70 Estim Creat Clear Calc Not Reportable Estimated GFR > 60 Glucose 110 H Calcium 9.9 Discharge Plan Discharge Attending physician on discharge: Berta Benitez Consulting providers: Jason Hernandez Discharging Clinician: Berta Benitez Anticipated Discharge Date/Time: 01/30/21 11:33 Patient Disposition: SNF Activity: as tolerated Diet: regular Stand Alone Forms: General Discharge Information Follow-up/Referrals: Tom Pena MD [Primary Care Provider] - Discharge Medications: Continued citalopram 40 mg tablet 40 mg PO DAILY RF: 0 ergocalciferol (vitamin D2) 1,250 mcg (50,000 unit) capsule 50,000 unit PO WEEKLY RF: 0 levetiracetam 1,000 mg tablet 1,000 mg PO BID RF: 0 Date of admission: 01/29/21 10:30 Primary Care Provider: Tom Pena Admitting Provider: Andrez Simmons Attending physician on admission: Andrez Simmons Condition: Improved
[2021-01-30 12:42] VITALS: O2SAT 98
[2021-02-01 16:34] LABS: Levetiracetam Keppra 78.8 mcg/mL (12.0-46.0)
== END 2021-01-30 14:00 | disposition home or self-care (01) | DRG 53 ==
LOC: ANHED 22:00 → ANH2MED 22:11
PROVIDERS: Admitting Provider Family Medicine; Emergency Provider Emergency Medicine; PCP Emergency Medicine; Visit Provider Family Medicine
DX: G40.909 Epilepsy, unspecified, not intractable, without status epilepticus (principal); R82.90 Unspecified abnormal findings in urine; D64.9 Anemia, unspecified; R74.01 Elevation of levels of liver transaminase levels; Z28.21 Immunization not carried out because of patient refusal; Z79.899 Other long term (current) drug therapy
CPT/HCPCS: 36415; 70450; 80048; 80053; 80177; 80185; 80307; 81001; 83735; 84443; 85025; 85027; 87086; 87088; 93005; 95816; 96361; 96365; 96367; 96375; 99285; G0378; G0379; J0696; J1953; J2060; J7030; J7040

== ENCOUNTER 2021-01-30 20:27 | Emergency (ER) | payer SELFPAY ==
[2021-01-30 20:30] VITALS: BP 96/71; PULSE 88; RESP 13; O2SAT 99
[2021-01-30 20:36] VITALS: O2SAT 98
[2021-01-30 20:37] VITALS: O2SAT 97
[2021-01-30 20:39] VITALS: BP 95/80; PULSE 81; RESP 15; O2SAT 97
--- NOTE | 2021-01-30 20:40 | PC.NURSE ---
Pt presents to ED with EMS who states pt endorsed that pt had a seizure at approx 2000 that lasted 60 seconds. Pt is alert x3 at baseline. Pt denies seizure activity and does not behave as if she is post ictal. Pt denies all pain and discomfort at this time. States she took her dilantin this morning. Vitals are stable and breathing is even and unlabored. Pt advised to press call button for assistance.
--- NOTE | 2021-01-30 20:41 | PC.NURSE ---
Seizure pads applied.
--- NOTE | 2021-01-30 21:33 | PC.NURSE ---
EDMD presented to bedside.
[2021-01-30 21:51] LABS: Basophils Percent Auto 0.4 % (0.2-1.2); Eosinophils Absolute Auto 0.1 K/mm3 (0-0.3); Eosinophils Percent Auto 1.2 % (0-4.4); Hematocrit 38.3 % (37.0-47.0); Hemoglobin 12.6 g/dL (12.0-15.0); Immature Granulocyte Absolute 0.02 K/mm3 (0.00-0.031); Immature Granulocyte Percent A 0.4 % (0-0.5); Lymphocytes Absolute Auto 1.82 K/mm3 (0.9-3.2); Lymphocytes Percent Auto 31.9 % (18.3-44.2); Mean Corpuscular HGB Conc 32.9 g/dl (32-36); Mean Corpuscular Hemoglobin 28.1 pg (26-34); Mean Corpuscular Volume 85.3 fl (80-100); Mean Platelet Volume 10.6 fl (7.4-10.4); Monocytes Absolute Auto 0.8 K/mm3 (0.1-0.6); Monocytes Percent Auto 13.1 % (2.6-8.5); Platelet Count Result 191 k/mm3 (150-375); Red Blood Count 4.49 M/mm3 (4.2-5.4); Red Cell Distribution Width 13.1 % (11.5-14.5); White Blood Count 5.7 K/mm3 (4.5-10.0)
[2021-01-30 21:56] VITALS: BP 101/79; PULSE 80; RESP 16; O2SAT 97
--- NOTE | 2021-01-30 21:57 | ED.GENADULT ---
HPI - General Adult General Chief complaint: Seizure Stated complaint: seizure Time Seen by Provider: 01/30/21 21:20 History of Present Illness HPI narrative: Patient 50-year-old female presents to emergency department with chief complaint of seizure. Patient was just admitted to the hospital and was discharged earlier today patient was seen by neurology and EEG while she was inpatient and is currently on Keppra. Patient states that now she just feels sick per EMS. Patient reportedly had a seizure lasted less than a minute at home and has not had any other seizure-like activity. Per the patient's family member after the patient was discharged from the hospital she had multiple seizures at home. Upon arrival to the emergency department the patient has not had any other seizure activity. The patient family reports that the patient did not have her evening dose of Keppra after she has been discharged. Related Data Home Medications Medication Instructions Recorded Confirmed citalopram 40 mg PO DAILY 01/28/21 01/29/21 ergocalciferol (vitamin D2) 50,000 unit PO WEEKLY 01/28/21 01/29/21 levetiracetam 1,000 mg PO BID 01/28/21 01/29/21 Allergies Allergy/AdvReac Type Severity Reaction Status Date / Time No Known Drug Allergies Allergy Mild Unknown Verified 01/28/21 17:20 Review of Systems Review of Systems: Narrative: A 10 system review of systems was completed on the patient and is negative except for what is stated in the HPI. Nursing and ancillary documentation was reviewed. [facility] Past Medical History Medical History Seizure Family History Family History Other Unknown family medical history Social History Social History Smoking status: Never smoker Alcohol intake: never Substance use: never Gender identity (if verbalized by the patient): Female Spiritual care concerns: No Exam Narrative: Exam Narrative: GENERAL: Well-appearing, well-nourished, and in no acute distress. HEAD: Normocephalic, atraumatic. EYES: PERRLA and EOMI. ENT: Nares clear, no rhinorrhea or epistaxis. Mucous membranes moist. NECK: Supple. CHEST: Clear to auscultation. No respiratory distress. HEART: Regular rate and rhythm. No murmur heard. Normal peripheral pulses. ABDOMEN: Soft, nontender, nondistended, normal active bowel sounds. EXTREMITIES: Normal range of motion. No edema. SKIN: Warm, dry, no rash. NEURO: No focal deficits. Alert and oriented x3. PSYCH: Normal mood and affect. Course Vital Signs Vital signs: Vital Signs Pulse Rate 88 01/30/21 20:30 Respiratory Rate 13 01/30/21 20:30 Blood Pressure 96/71 L 01/30/21 20:30 Pulse Oximetry 99 01/30/21 20:30 Pulse Rate 80 01/30/21 21:56 Respiratory Rate 16 01/30/21 21:56 Blood Pressure 101/79 01/30/21 21:56 Pulse Oximetry 97 01/30/21 21:56 Medical Decision Making Vital Signs Vital Signs: Vital Signs Pulse Rate 88 01/30/21 20:30 Respiratory Rate 13 01/30/21 20:30 Blood Pressure 96/71 L 01/30/21 20:30 Pulse Oximetry 99 01/30/21 20:30 Pulse Rate 80 01/30/21 21:56 Respiratory Rate 16 01/30/21 21:56 Blood Pressure 101/79 01/30/21 21:56 Pulse Oximetry 97 01/30/21 21:56 Lab Data Result diagrams: 01/30/21 21:43 01/30/21 21:43 Labs: Lab Results 01/30/21 01/30/21 01/30/21 Range/Units 21:43 21:43 21:43 WBC 5.7 (4.5-10.0) K/mm3 RBC 4.49 (4.2-5.4) M/mm3 Hgb 12.6 (12.0-15.0) g/dL Hct 38.3 (37.0-47.0) % MCV 85.3 (80-100) fl MCH 28.1 (26-34) pg MCHC 32.9 (32-36) g/dl RDW 13.1 (11.5-14.5) % Plt Count 191 (150-375) k/mm3 MPV 10.6 H (7.4-10.4) fl Immature Gran % (Auto) 0.4 (0-0.5) % Neut % (Auto) 53.0 (45.5-73.1) % Lymph % (Auto
[2021-01-30 22:01] LABS: Lactic Acid Reflex 0.8 mmol/L (0.7-2.1)
[2021-01-30 22:02] LABS: Alanine Aminotransferase 41 U/L (4-35); Albumin Level 4.4 g/dL (3.5-5.1); Alkaline Phosphatase 73 U/L (38-126); Anion Gap 7 mmol/L (8-16); Aspartate Amino Transferase 29 U/L (14-36); Bilirubin,Total 0.3 mg/dL (0.2-1.3); Blood Urea Nitrogen 11 mg/dL (7-17); Calcium 10.2 mg/dL (8.4-10.2); Carbon Dioxide 25 mmol/L (22-30); Chloride 106 mmol/L (98-107); Estimated Glomerular Filt Rate > 60; Glucose 105 mg/dL (65-105); Sodium 138 mmol/L (137-145)
--- NOTE | 2021-01-30 22:30 | PC.NURSE ---
Son presented to ED. states he will wait in parking lot for pt dc.
--- NOTE | 2021-01-30 22:33 | PC.NURSE ---
Awaiting med from pharmacy.
--- NOTE | 2021-01-30 22:42 | PC.NURSE ---
Rosas received from pharmacy.
[2021-01-30] MEDS: levETIRAcetam 500 MG TABLET 1000 MG PO (22:43)
[2021-01-31 00:21] VITALS: BP 101/79; PULSE 83; RESP 18; TEMP 36.7; O2SAT 98
--- NOTE | 2021-01-31 00:21 | PC.NURSE ---
Son returned to bedside.
== END 2021-01-31 00:23 | disposition home or self-care (01) ==
PROVIDERS: Emergency Provider Emergency Medicine; PCP Emergency Medicine
DX: G40.909 Epilepsy, unspecified, not intractable, without status epilepticus (principal)
CPT/HCPCS: 36415; 80053; 83605; 85025; 99283; A9270

== ENCOUNTER 2021-02-28 12:58 | Observation (INO) | payer SELFPAY ==
[2021-02-28] VITALS (39 sets, daily range): BP systolic 93–116; BP diastolic 63–102; PULSE 70–86; RESP 12–20; TEMP 36.8–36.9; O2SAT 98–100; BMI 19.6
--- NOTE | ~2021-02-28 | XR_ITS ---
EXAMINATION: XR chest 1V DATE: 02/28/2021 16:27 INDICATION: Confusion. TECHNIQUE: A single frontal view of the chest was obtained. COMPARISON: None. FINDINGS: The chest demonstrates clear lungs without pneumonia, pleural effusion, or pneumothorax. Th e heart size is normal. IMPRESSION: 1. No acute cardiopulmonary disease. Reviewed, dictated and finalized at location B.
--- NOTE | ~2021-02-28 | CT_ITS ---
EXAMINATION: CT brain wo con DATE: 02/28/2021 16:17 INDICATION: Confusion. TECHNIQUE: Computed tomography (CT) of the head was performed without intravenous contrast. The mA wa s adjusted according to patient size. Iterative reconstruction technique was employed. The dose-lengt h product was 605.33 mGy-cm. COMPARISON: Head CT 01/28/2021 FINDINGS: There is chronic diffuse volume loss of the cerebellum. There is no intracranial hemorrhage , acute infarction, or abnormal intracranial mass lesion. The ventricles are normal in size. The para nasal sinuses are clear. There is a trace left mastoid effusion. The orbits are normal. IMPRESSION: 1. Stable diffuse cerebellar atrophy, likely secondary to chronic anticonvulsant medication use. Reviewed, dictated and finalized at location B. IMPRESSION: 1. Stable diffuse cerebellar atrophy, likely secondary to chronic anticonvulsan t medication use.
--- NOTE | 2021-02-28 13:13 | ECG_ITS ---
Measurements Intervals [place] Rate: 75 P: 66 SD: 144 QRS: -14 QRSD: 73 T: 0 QT: 354 QTc: 396 Interpretive Statements SINUS RHYTHM RSR' IN V1 OR V2, CONSIDER RIGHT VENTRICULAR HYPERTROPHY OR RIGHT VCD NONSPECIFIC ST & T-WAVE ABNORMALITY- ANT/HIGH LAT LEADS BASELINE ARTIFACT- II, III, AVR, AVL, AVF, V1-V6 BORDERLINE ECG Electronically Signed On 02-28-2021 13:42:34 CDT by Jay Dean D.O.
[2021-02-28 13:36] LABS: Basophils Percent Auto 0.7 % (0.2-1.2); Eosinophils Absolute Auto 0.1 K/mm3 (0-0.3); Eosinophils Percent Auto 1.4 % (0-4.4); Hemoglobin 13.5 g/dL (12.0-15.0); Immature Granulocyte Absolute 0.01 K/mm3 (0.00-0.031); Immature Granulocyte Percent A 0.2 % (0-0.5); Lymphocytes Absolute Auto 1.51 K/mm3 (0.9-3.2); Lymphocytes Percent Auto 34.6 % (18.3-44.2); Mean Corpuscular HGB Conc 32.9 g/dl (32-36); Mean Corpuscular Hemoglobin 28.2 pg (26-34); Mean Corpuscular Volume 85.6 fl (80-100); Mean Platelet Volume 10.4 fl (7.4-10.4); Monocytes Absolute Auto 0.6 K/mm3 (0.1-0.6); Neutrophils Absolute Auto 2.2 K/mm3 (1.3-6.7); Neutrophils Percent Auto 49.1 % (45.5-73.1); Platelet Count Result 191 k/mm3 (150-375); Red Blood Count 4.79 M/mm3 (4.2-5.4); Red Cell Distribution Width 12.4 % (11.5-14.5); White Blood Count 4.4 K/mm3 (4.5-10.0)
[2021-02-28 13:46] LABS: Alanine Aminotransferase 26 U/L (4-35); Albumin Level 4.8 g/dL (3.5-5.1); Alkaline Phosphatase 81 U/L (38-126); Anion Gap 6 mmol/L (8-16); Aspartate Amino Transferase 32 U/L (14-36); Bilirubin,Total 0.3 mg/dL (0.2-1.3); Blood Urea Nitrogen 11 mg/dL (7-17); Calcium 10.4 mg/dL (8.4-10.2); Carbon Dioxide 33 mmol/L (22-30); Chloride 101 mmol/L (98-107); Estimated Glomerular Filt Rate > 60; Glucose 99 mg/dL (65-105); Sodium 140 mmol/L (137-145)
[2021-02-28 14:14] LABS: Add Urine Microscopic? YES; Appearance Urine Cloudy (Clear); Bacteria Urine Trace /hpf; Bilirubin Urine Negative (Negative); Blood Urine Negative (Negative); Color Urine Yellow (Yellow); Glucose Urine UA Negative (Negative); Ketones Urine Negative (Negative); Leukocyte Esterase Ur Negative LEU/UL (Negative); Mucus Urine Rare /lpf; Nitrate Urine Negative (Negative); Protein Urine Negative (Negative); RBC Urine 0-2 /hpf (0-2); Specific Grav Ur 1.017 (1.001-1.035); Squamous Epithelial Cell Urine Occasional /hpf (Few); Urobilinogen Urine Negative mg/dL (<2.0); WBC Urine 0-3 /hpf
[2021-02-28 14:27] LABS: Amphetamine Screen Urine Negative (Negative); Barbiturate Screen Urine Negative (Negative); Benzodiazepines Screen Urine Negative (Negative); Cannabinoid Screen Urine Negative (Negative); Cocaine Screen Urine Negative (Negative); Methadone Screen Urine Negative (Negative); Opiate Screen Urine Negative (Negative); Phencyclidine Screen Urine Negative (Negative)
[2021-02-28] MEDS: levETIRAcetam 1000MG/NACL100ML 1,000 MG/100 ML BAG 400 MG IVPB (14:43)
--- NOTE | 2021-02-28 15:08 | ED.GENADULT ---
HPI - General Adult General Chief complaint: Seizure Stated complaint: SEIZURE Time Seen by Provider: 02/28/21 13:09 Source: patient and RN notes reviewed Mode of arrival: EMS Limitations: altered mental status History of Present Illness HPI narrative: Patient is 50 years old -[place] female brought to the emergency room by ambulance because, found unresponsive on her couch this morning prior to arrival, possible unwitnessed seizure, currently patient is confused, no significant other at the bedside,. I am not able to get any more details at this time.. History of schizophrenia Related Data Home Medications Medication Instructions Recorded Confirmed citalopram 40 mg PO DAILY 01/28/21 01/29/21 ergocalciferol (vitamin D2) 50,000 unit PO WEEKLY 01/28/21 01/29/21 levetiracetam 1,000 mg PO BID 01/28/21 01/29/21 Allergies Allergy/AdvReac Type Severity Reaction Status Date / Time No Known Drug Allergies Allergy Mild Unknown Verified 01/28/21 17:20 Review of Systems Review of Systems: Narrative: . ROS unobtainable: Yes unobtainable due to mental status PMFSH Past Medical History Medical History Seizure Family History Family History Other Unknown family medical history Social History Social History Smoking status: Never smoker Alcohol intake: never Substance use: never Gender identity (if verbalized by the patient): Female Spiritual care concerns: No Exam Narrative: Exam Narrative: General appearance: Well-developed, well-nourished Skin: Normal color Head: Normocephalic, nontraumatic Eyes: Clear conjunctiva ENT: Oropharynx normal, ears normal, nose normal Neck: Supple, nontender Chest and respiratory: Airway patent, no respiratory distress, no accessory muscle use Heart: Regular rate/rhythm Abdomen: Soft, nontender, no organomegaly, quiet bowel sounds Vascular: Normal peripheral pulses, normal capillary refill. Musculoskeletal: Normal range of motion, nontender back Neurologic: Alert and oriented to her name and age only Course Course Emergency Course: Stable, confused Reevaluation(s) Reevaluation #1: Patient still confused, awake and oriented to her name and age only, otherwise postictal seizure is high likely not underlying cause of patient's symptoms. Because I do not know the baseline of her condition, patient will be admitted for observation for possible improvement in the next few hours. Date: 02/28/21 Time: 17:00 Vital Signs Vital signs: Vital Signs Temperature 36.8 C 02/28/21 13:05 Pulse Rate 77 02/28/21 13:05 Respiratory Rate 14 02/28/21 13:05 Blood Pressure 104/64 02/28/21 13:05 Pulse Oximetry 99 02/28/21 13:05 Temperature 36.8 C 02/28/21 13:05 Pulse Rate 77 02/28/21 17:00 Respiratory Rate 15 02/28/21 17:00 Blood Pressure 104/74 02/28/21 17:00 Pulse Oximetry 100 02/28/21 17:00 Medical Decision Making MDM Narrative Medical decision making narrative: Patient brought to the emergency room with unresponsiveness, possible seizure, no witness currently is confused, possible postictal. Patient is telling me that the president is Emrerhina Gamboa and she been taking Dilantin. According to her medication, there is no Dilantin. Patient is on Keppra Differential Diagnosis Differential Diagnosis: Seizure, postictal, drug abuse, electrolyte abnormality Vital Signs Vital Signs: Vital Signs Temperature 36.8 C 02/28/21 13:05 Pulse Rate 77 02/28/21 13:05 Respiratory Rate 14 02/28/21 13:05 Blood Pressure 104/
[2021-02-28 15:14] LABS: Phenytoin Dilantin < 3 ug/mL (10-20)
--- NOTE | 2021-02-28 19:05 | ADMGEN ---
This patient, Niya Brown, was admitted to [facility] Surg Room 305-01. Patient/family oriented to hospital policies and general routines including ID bracelet, bed and alarms, visiting hours, pain management, procedures, bathroom and other care routines, personal items, smoking policy, room service/diet, and visiting hours. Information on how to activate the Rapid Response Team has been discussed. Patient/Family are encouraged to report perceived risks to care and to ask questions if they do not understand what they are told or what they should do.
--- NOTE | 2021-02-28 23:36 | PM.IMHP ---
H&P: HPI History of Present Illness Date/Time: 02/28/21 23:36 this is a 50-year-old female patient who has a history of schizophrenia and seizure disorder. In the emergency room on 01/30/2021 with complaint of seizure the patient was telling them that she just felt sick and thought that she had a seizure at that time she was discharged back to home. It appears that the patient was discharged from the hospital that very day where she had been placed in observation. She was started on IV Keppra and transition back to her oral Keppra. To the emergency room via ambulance because she was found unresponsive on her couch this morning. Possible on witnessed seizure. The patient was confused. The patient tells me that she lives with her son. When she was question in the emergency room she that Emre Gamboa was the president. The patient is answering questions but is slow to speak. She is awake and orientated to herself and place now but not always to time. Her head CT was read as stable diffuse cerebellar atrophy likely secondary to chronic anti convulsive medication use. Chest x-ray no acute cardiopulmonary disease per radiology. EKG was read as sinus rhythm. The patient was given IV Tylenol and IV Keppra in the emergency room. The patient was admitted to observation status on the date of service of 02/28/2021. Chief Complaint: Seizure Review of Systems Review of Systems: All systems reviewed & are unremarkable except as noted in HPI and below Constitutional: Constitutional: Reports as per HPI and Reports no additional constitutional complaints Eyes: Eyes: Reports as per HPI and Reports no additional eye complaints ENT: Reports system reviewed and no additional complaints, except as documented and Reports Normal hearing present Cardiovascular: Cardiovascular: Reports no additional cardiovascular complaints Respiratory: Respiratory: Reports no additional respiratory complaints and Reports no additional respiratory complaints Gastrointestinal: Gastrointestinal: Reports as per HPI and Reports no additional gastrointestinal complaints Musculoskeletal: Musculoskeletal: Reports no additional musculoskeletal complaints Integumentary/Breasts: Skin/Breast: Reports system reviewed and no additional complaints, except as docu and Reports as per HPI Neurologic: Reports system reviewed and no additional complaints, except as documented, Reports as per HPI and Reports Normal hearing present Psychiatric: Psychiatric: Reports no additional psychiatric complaints and Reports as per HPI Endocrine: Endocrine: Reports no additional endocrine complaints Hematologic/Lymphatic: Hematologic/Lymphatic: Reports no additional hematologic/lymphatic complaints Allergic/Immunologic: Allergic/Immunologic: Reports no additional allergic/immunologic complaints PMF Past Medical History Medical History (Updated 02/28/21 @ 23:43 by Antonella Burden NP) Schizophrenia Seizure Uncontrolled seizures UTI (urinary tract infection) Surgical History Surgical History (Updated 02/28/21 @ 23:44 by Antonella Budren NP) Surgical history unknown Family History Family History Other Unknown family medical history Social History Social History (Updated 02/28/21 @ 23:44 by Antonella Burden NP) Social History: The patient stated that she has a son and 2 daughters. The patient tells me that she is on disability and does receive SSI. She tells me that she is and relies on her family to take care of her. She is listed as a full code. She denies any alcohol tobacco or illicit drugs. Smoking status: Never smoker Alcohol intake: never Substance use: never Substance use type: does not use Gender identity (if verbalized by the patient): Female Spiritual care concerns: No Meds Home Medications and Allergies Home Medications Medication Instructions Recorded Confirmed Type ci
[2021-03-01 05:46] VITALS: BP 93/65; PULSE 82; RESP 20; TEMP 36.6; O2SAT 98
[2021-03-01 06:02] LABS: Basophils Percent Auto 0.7 % (0.2-1.2); Eosinophils Absolute Auto 0.1 K/mm3 (0-0.3); Eosinophils Percent Auto 2.3 % (0-4.4); Hematocrit 36.1 % (37.0-47.0); Hemoglobin 11.9 g/dL (12.0-15.0); Immature Granulocyte Absolute 0.01 K/mm3 (0.00-0.031); Immature Granulocyte Percent A 0.2 % (0-0.5); Lymphocytes Absolute Auto 1.54 K/mm3 (0.9-3.2); Lymphocytes Percent Auto 34.8 % (18.3-44.2); Mean Corpuscular Hemoglobin 27.5 pg (26-34); Mean Corpuscular Volume 83.4 fl (80-100); Mean Platelet Volume 11.2 fl (7.4-10.4); Monocytes Absolute Auto 0.5 K/mm3 (0.1-0.6); Monocytes Percent Auto 11.3 % (2.6-8.5); Neutrophils Absolute Auto 2.3 K/mm3 (1.3-6.7); Neutrophils Percent Auto 50.7 % (45.5-73.1); Platelet Count Result 185 k/mm3 (150-375); Red Blood Count 4.33 M/mm3 (4.2-5.4); Red Cell Distribution Width 12.1 % (11.5-14.5); White Blood Count 4.4 K/mm3 (4.5-10.0)
[2021-03-01 06:22] LABS: Alanine Aminotransferase 21 U/L (4-35); Albumin Level 4.2 g/dL (3.5-5.1); Alkaline Phosphatase 63 U/L (38-126); Anion Gap 7 mmol/L (8-16); Aspartate Amino Transferase 24 U/L (14-36); Bilirubin,Total 0.2 mg/dL (0.2-1.3); Blood Urea Nitrogen 15 mg/dL (7-17); Calcium 10.2 mg/dL (8.4-10.2); Carbon Dioxide 25 mmol/L (22-30); Chloride 105 mmol/L (98-107); Estimated CRCL calculation 52 ml/min; Estimated Glomerular Filt Rate > 60; Glucose 92 mg/dL (65-105); Magnesium 1.9 mg/dL (1.6-2.3); Potassium 3.9 mmol/L (3.4-5.0); Sodium 137 mmol/L (137-145)
[2021-03-01] MEDS: levETIRAcetam 500 MG TABLET 1000 MG PO ×2 (09:37→20:13)
[2021-03-01] MEDS: CITALOPRAM HYDROBROMIDE 20 MG TABLET 40 MG PO (09:37)
--- NOTE | 2021-03-01 13:27 | PM.IMPN ---
Progress Note: A&P Assessment and Plan (1) Seizure disorder: Code(s): G40.909 - Epilepsy, unspecified, not intractable, without status epilepticus Status: Acute Assessment and Plan: Continue Keppra dose From home. The patient appears to be more awake. Neurology consult was greatly be appreciated. Pt can probably be discharged tomorrow. Pt had Iv keppra in ED switched back to oral today. (2) Altered mental status: Qualifiers: Altered mental status type: unspecified Qualified Code(s): R41.82 - Altered mental status, unspecified Code(s): R41.82 - Altered mental status, unspecified Status: Acute Assessment and Plan: The patient is more awake. Most likely this is her baseline. Continue to watch today for any further seizures and DC tomorrow (3) Schizophrenia: Code(s): F20.9 - Schizophrenia, unspecified Status: Chronic Assessment and Plan: Continue with Celexa. Subjective Date/time seen: 03/01/21 13:27 Interval history: 50-year-old female patient who has a history of schizophrenia and seizure disorder. Pt brought to the emergency room on 01/30/2021 with complaint of seizure Review of Systems Review of Systems: All systems reviewed & are unremarkable except as noted in HPI and below Exam Const: General: alert, awake and Physically active Limitations: other limitations (Mental delays) Chest: Chest palpation & inspection: normal inspection of the chest Resp: Effort & Inspection: normal respiratory effort Auscultation: clear to auscultation bilaterally Cardio: Palpation: normal PMI Rate: regular rate Rhythm: regular rhythm Heart sounds: S1 normal heart sound present and S2 normal heart sound present Peripheral pulses: Peripheral pulses 2+ throughout GI: Inspection: normal to inspection Auscultation: normal bowel sounds Skin: General skin exam: normal color Neuro: General: oriented to person, oriented to place, oriented to time and patient oriented x3 Cranial nerves: Yes Equal, round and reactive pupils present and Yes Normal hearing present Cognition (Neuro): abnormal cognition Speech: Abnormal speech present (Delayed and slow) Motor exam (neuro): 5/5 motor strength present throughout Sensory Exam: normal sensation Extrem: General: normal to inspection Right upper extremity: normal to inspection Left upper extremity: normal to inspection Right lower extremity: normal to inspection Left lower extremity: normal to inspection Psych: Appearance: grossly normal Mental Status: mental status grossly normal Speech and movement: Slowed speech present (Psych) Affect: normal affect Attitude: cooperative Insight: Limited insight present (Psych) Judgement: Limited judgement present (Psych) Objective Data Vital Signs Vital Signs: Vital Signs - 24 hr 02/28/21 13:30 02/28/21 13:31 02/28/21 13:45 Temperature Pulse Rate 77 83 86 Respiratory Rate 17 17 18 Blood Pressure 98/74 L Pulse Oximetry 100 100 100 02/28/21 13:46 02/28/21 14:04 02/28/21 14:08 Temperature Pulse Rate 78 82 Respiratory Rate 14 18 Blood Pressure 100/76 Pulse Oximetry 100 100 98 02/28/21 14:16 02/28/21 14:17 02/28/21 14:30 Temperature Pulse Rate 83 84 83 Respiratory Rate 17 17 16 Blood Pressure 104/73 Pulse Oximetry 100 98 99 02/28/21 14:45 02/28/21 14:52 02/28/21 15:23 Temperature Pulse Rate 76 78 80 Respiratory Rate 19 13 13 Blood Pressure 116/102 H Pulse Oximetry 99 02/28/21 15:30 02/28/21 15:42 02/28/21 15:45 Temperature Pulse Rate 81 79 Respiratory Rate 20 15 15 Blood Pressure 110/83 Pulse Oximetry 100 100 02/28/21 15:46 02/28/21 15:47 02/28/21 16:00 Temperature Pulse Rate 80 81 79 Respiratory Rate 15 18 18 Blood Pressure 101/69 Pulse Oximetry 100 100 100 02/28/21 16:01 02/28/21 16:25 02/28/21 16:26 Temperature Pulse Rate 77 70 74 Respiratory Rate 15 14 16 Blood Pressure 98/74 L 102/76
--- NOTE | 2021-03-01 13:53 | WPDNEURCNPN ---
Assessment and Plan Assessment and plan (1) Schizophrenia: Code(s): F20.9 - Schizophrenia, unspecified Status: Chronic Additional Plan treatment as such Consult date: 03/01/21 Time Seen: 03:00 HPI: Niya Brown is a 50 year old female dated to the hospital through the emergency room with ongoing history of 1. Schizophrenia 2. Seizure disorder patient insert room via ambulance, was found Carmelo on her couch in the morning and with the in possibility of witnessed seizure patient was reportedly confused she lives with her son in the [place] was definitely confused and was not answering appropriately her CT scan of the brain revealed diffuse cerebellar atrophy secondary to chronic anticonvulsive medications and her EKG was in sinus rhythm, other investigation included a CBC which revealed hemoglobin 11.9 WBC 4.4 and the platelet count of 185, her basic metabolic panel was normal, UA was negative, and toxicology screen was negative Review of Systems Review of Systems: All systems reviewed & are unremarkable except as noted in HPI and below PMFSH Past Medical History Medical History Schizophrenia Seizure Uncontrolled seizures UTI (urinary tract infection) Surgical History Surgical History Surgical history unknown Family History Family History Other Unknown family medical history Social History Social History Social History: The patient stated that she has a son and 2 daughters. The patient tells me that she is on disability and does receive SSI. She tells me that she is and relies on her family to take care of her. She is listed as a full code. She denies any alcohol tobacco or illicit drugs. Smoking status: Never smoker Alcohol intake: never Substance use: never Substance use type: does not use Gender identity (if verbalized by the patient): Female Spiritual care concerns: No Meds Home Medications and Allergies Home Medications Medication Instructions Recorded Confirmed Type citalopram 40 mg PO DAILY 01/28/21 02/28/21 History ergocalciferol (vitamin D2) 50,000 unit PO WEEKLY 01/28/21 02/28/21 History levetiracetam 1,000 mg PO BID 01/28/21 02/28/21 History Allergies Allergy/AdvReac Type Severity Reaction Status Date / Time No Known Drug Allergies Allergy Mild Unknown Verified 01/28/21 17:20 Vital Signs Vital Signs - 24 hr 02/28/21 14:04 02/28/21 14:08 02/28/21 14:16 Temperature Pulse Rate 82 83 Respiratory Rate 18 17 Blood Pressure 104/73 Pulse Oximetry 100 98 100 02/28/21 14:17 02/28/21 14:30 02/28/21 14:45 Temperature Pulse Rate 84 83 76 Respiratory Rate 17 16 19 Blood Pressure Pulse Oximetry 98 99 99 02/28/21 14:52 02/28/21 15:23 02/28/21 15:30 Temperature Pulse Rate 78 80 Respiratory Rate 13 13 20 Blood Pressure 116/102 H Pulse Oximetry 02/28/21 15:42 02/28/21 15:45 02/28/21 15:46 Temperature Pulse Rate 81 79 80 Respiratory Rate 15 15 15 Blood Pressure 110/83 101/69 Pulse Oximetry 100 100 100 02/28/21 15:47 02/28/21 16:00 02/28/21 16:01 Temperature Pulse Rate 81 79 77 Respiratory Rate 18 18 15 Blood Pressure 98/74 L Pulse Oximetry 100 100 100 02/28/21 16:25 02/28/21 16:26 02/28/21 16:30 Temperature Pulse Rate 70 74 77 Respiratory Rate 14 16 14 Blood Pressure 102/76 Pulse Oximetry 100 100 100 02/28/21 16:31 02/28/21 17:00 02/28/21 17:01 Temperature Pulse Rate 70 77 74 Respiratory Rate 14 15 12 Blood Pressure 97/74 L 104/74 104/74 Pulse Oximetry 100 100 100 02/28/21 17:16 02/28/21 17:17 02/28/21 17:31 Temperature Pulse Rate 70 70 70 Respiratory Rate 14 14 14 Blood Pressure 108/82 110/78 Pulse Oximetry 100 100 100 02/28/21 17:32 02/28/21 17:45 02/28/21 17:4
[2021-03-01 14:00] VITALS: BP 108/68; PULSE 95; RESP 18; TEMP 36.9; O2SAT 96
[2021-03-01 22:00] VITALS: BP 106/71; PULSE 81; RESP 16; TEMP 37.1; O2SAT 98
[2021-03-02 06:00] VITALS: BP 88/58; PULSE 94; RESP 16; TEMP 37.1; O2SAT 100
[2021-03-02 08:00] VITALS: PULSE 94; RESP 16; O2SAT 97
[2021-03-02 09:48] VITALS: O2SAT 97
[2021-03-02] MEDS: levETIRAcetam 500 MG TABLET 1000 MG PO (10:28)
[2021-03-02] MEDS: CITALOPRAM HYDROBROMIDE 20 MG TABLET 40 MG PO (10:29)
--- NOTE | 2021-03-02 11:43 | WPDNEUROPN ---
Progress Note: A&P Assessment and Plan (1) Schizophrenia: Code(s): F20.9 - Schizophrenia, unspecified Status: Chronic (2) Seizure disorder: Code(s): G40.909 - Epilepsy, unspecified, not intractable, without status epilepticus Status: Acute Additional Plan she had been taking Dilantin for a long time in the past which was switched over to Keppra and continue the Keppra as such will follow in the of I know this patient for more than 20 years Review of Systems Review of Systems: All systems reviewed & are unremarkable except as noted in HPI and below Exam Const: General: cooperative, comfortable, no acute distress, alert and awake Nutritional Appearance: thin Limitations: behavioral limitations HENMT: Head: normocephalic Ears: hearing grossly normal bilaterally General nose exam: Normal external nose present Face and sinus: normal facial exam Eyes: Visual Lester: normal visual lester by confrontation Alignment and Position: alignment normal Periorbital: periorbital findings normal Eyelids: eyelids normal Conjunctivae: conjunctivae normal Sclera: sclerae normal Cornea: corneas normal Pupils: Equal, round and reactive pupils present Neck: Neck: full ROM Resp: Effort & Inspection: normal respiratory effort Auscultation: clear to auscultation bilaterally Cardio: Rate: regular rate Rhythm: regular rhythm Neuro: General: oriented to person Cranial nerves: Yes CN's II-XII intact bilaterally Cognition (Neuro): abnormal cognition Speech: Abnormal speech present Gait exam (Neuro): Unable to assess gait Motor exam (neuro): Pronator motor function not present and No tremor noted Sensory Exam: normal sensation Objective Data Vital Signs Vital Signs: Vital Signs - 24 hr 03/01/21 14:00 03/01/21 22:00 03/02/21 06:00 Temperature 36.9 C 37.1 C 37.1 C Pulse Rate 95 81 94 Respiratory Rate 18 16 16 Blood Pressure 108/68 106/71 88/58 L Pulse Oximetry 96 98 100 03/02/21 09:48 Temperature Pulse Rate Respiratory Rate Blood Pressure Pulse Oximetry 97 Intake/Output Intake/Output: Intake & Output 02/27/21 02/28/21 03/01/21 03/02/21 23:59 23:59 23:59 23:59 Intake Total 100 930 390 Balance 100 930 390 Meds/Results Medications: Active Medications Generic Name Dose Route Start Last Admin Trade Name Freq PRN Reason Stop Dose Admin Citalopram Hydrobromide 40 mg 03/01/21 09:00 03/02/21 10:29 Citalopram Hydrobromide 20 Mg Tablet PO 40 mg DAILY CATALINA Administration Ergocalciferol 50,000 unit 03/04/21 09:00 Ergocalciferol 50,000 Unit Capsule PO Mo@0900 CATALINA Levetiracetam 1,000 mg 03/01/21 09:00 03/02/21 10:28 Levetiracetam 500 Mg Tablet PO 1,000 mg Q12HR CATALINA Administration Lorazepam 1 mg 02/28/21 23:50 Lorazepam Inj (*Crx) 2 Mg/Ml Vial IV PUSH Q6H PRN Seizure Activity Radiology Results: ITS Impressions Head CT 02/28/21 16:25 IMPRESSION: 1. Stable diffuse cerebellar atrophy, likely secondary to chronic anticonvulsant medication use. Chest X-Ray 02/28/21 16:29 IMPRESSION: 1. No acute cardiopulmonary disease. Quality VTE Prophylaxis VTE prophylaxis: mechanical ordered
--- NOTE | 2021-03-02 11:47 | PM.DS ---
DS: Admitting Diagnosis Admitting Diagnosis Admitting Diagnosis: Seizure DS: Discharge Diagnosis Discharge Diagnosis (1) Seizure disorder: Code(s): G40.909 - Epilepsy, unspecified, not intractable, without status epilepticus Status: Acute Assessment and Plan: Continue Keppra dose From home. The patient appears to be more awake. Neurology consult was greatly be appreciated. Pt can probably be discharged today. Pt had Iv keppra in ED switched back to oral yesterday, doing well. Pt has been seizure free in the hospital. (2) Altered mental status: Qualifiers: Altered mental status type: unspecified Qualified Code(s): R41.82 - Altered mental status, unspecified Code(s): R41.82 - Altered mental status, unspecified Status: Acute Assessment and Plan: likely was post ictal, The patient is more awake. Most likely this is her baseline. Pt has been seizure free in the hospital. (3) Schizophrenia: Code(s): F20.9 - Schizophrenia, unspecified Status: Chronic Assessment and Plan: Continue with Celexa. DS: Summary Hospital Course Hospital Course: 50-year-old female patient who has a history of schizophrenia and seizure disorder. Pt brought to the emergency room on 01/30/2021 with complaint of seizure. Pt had IV keppra in ED transition to oral dong well ok for discharge. Time Spent with Patient Time attestation: Total time spent providing and/or coordinating discharge services:40 minutes on day of discharge Exam Const: General: alert Orientation/consciousness: Other orientation findings (had to [employer] chief orientation ) Limitations: other limitations (Mental delays) Eyes: Pupils: Equal, round and reactive pupils present Chest: Chest palpation & inspection: normal inspection of the chest Resp: Effort & Inspection: normal respiratory effort Auscultation: clear to auscultation bilaterally Cardio: Palpation: normal PMI Rate: regular rate Rhythm: regular rhythm Heart sounds: S1 normal heart sound present and S2 normal heart sound present Peripheral pulses: Peripheral pulses 2+ throughout GI: Inspection: normal to inspection Auscultation: normal bowel sounds Skin: General skin exam: normal color Lesions: no lesions Rashes: no rashes Trauma: no lacerations or abrasions Wounds: no wounds Hair: normal Nails: normal Neuro: General: oriented to person, oriented to place, oriented to time and patient oriented x3 Cranial nerves: Yes Equal, round and reactive pupils present and Yes Normal hearing present Cognition (Neuro): abnormal cognition Speech: Abnormal speech present (Delayed and slow) Motor exam (neuro): 5/5 motor strength present throughout Sensory Exam: normal sensation Extrem: General: normal to inspection Right upper extremity: normal to inspection Left upper extremity: normal to inspection Right lower extremity: normal to inspection Left lower extremity: normal to inspection Psych: Appearance: grossly normal Mental Status: mental status grossly normal Speech and movement: Slowed speech present (Psych) Affect: normal affect Attitude: cooperative Insight: Limited insight present (Psych) Judgement: Limited judgement present (Psych) Discharge Plan Discharge Attending physician on discharge: Berta Benitez Consulting providers: Jason Hernandez Discharging Clinician: Berta Benitez Anticipated Discharge Date/Time: 03/02/21 11:42 Patient Disposition: Home, Self-Care Activity: as tolerated Diet: regular Discharge Instructions: Compliance to medications advised especially keppra Patient Instructions: Antibiotic Form, Altered Mental Status (GEN), Recurrent Seizures in Adults (DC) Stand Alone Forms: General Discharge Information Follow-up/Referrals: Tom Pena MD [Primary Care Provider] - Discharge Medications: Continued citalopram 40 mg tablet 40 mg PO DAILY RF: 0 ergocalciferol (vitamin D2) 1,250 mcg (50,00
== END 2021-03-02 14:40 | disposition home or self-care (01) ==
LOC: ANHED 16:57 → ANH3MEDSUR 03-01 09:39
PROVIDERS: Nurse Practitioner; Admitting Provider Hospitalist; Emergency Provider Emergency Medicine; PCP Emergency Medicine; Visit Provider Family Medicine
DX: G40.909 Epilepsy, unspecified, not intractable, without status epilepticus (principal); R41.82 Altered mental status, unspecified; F20.9 Schizophrenia, unspecified
CPT/HCPCS: 36415; 70450; 71045; 80053; 80185; 80307; 81001; 81025; 83735; 84443; 85025; 93005; 96374; 99285; A9270; G0378; G0379; J1953

== ENCOUNTER 2021-03-22 12:46 | Observation (INO) | payer SELFPAY ==
[2021-03-22] VITALS (45 sets, daily range): BP systolic 102–121; BP diastolic 65–83; PULSE 77–102; RESP 13–21; TEMP 36.6–36.9; O2SAT 96–100; BMI 21.2
--- NOTE | ~2021-03-22 | CT_ITS ---
EXAMINATION: CT brain wo con DATE: 03/22/2021 13:38 INDICATION: Seizures. TECHNIQUE: Computed tomography (CT) of the head was performed without intravenous contrast. The mA wa s adjusted according to patient size. Iterative reconstruction technique was employed. The dose-lengt h product was 529.67 mGy-cm. COMPARISON: Head CT 02/28/2021 FINDINGS: There is diffuse atrophy of the cerebellum. There is no intracranial hemorrhage, acute infa rction, or abnormal intracranial mass lesion. The ventricles are normal in size. The paranasal sinuse s are clear. The orbits are normal. The mastoid air cells are normal. IMPRESSION: 1. Stable diffuse cerebellar atrophy, likely secondary to chronic anticonvulsant medication use. Reviewed, dictated and finalized at location B. IMPRESSION: 1. Stable diffuse cerebellar atrophy, likely secondary to chronic anticonvulsan t medication use.
--- NOTE | 2021-03-22 13:20 | PC.NURSE ---
seizure pads on bilat rails upon arrival to ed. no seizure activity.
--- NOTE | 2021-03-22 13:26 | ECG_ITS ---
Measurements Intervals [place] Rate: 94 P: 61 AL: 146 QRS: -17 QRSD: 90 T: 36 QT: 355 QTc: 444 Interpretive Statements SINUS RHYTHM INCOMPLETE RIGHT BUNDLE BRANCH BLOCK NONSPECIFIC T-WAVE ABNORMALITY- DIFFUSE LEADS BORDERLINE ECG Electronically Signed On 03-22-2021 17:25:52 CDT by Jay Dean D.O.
--- NOTE | 2021-03-22 13:36 | PC.NURSE ---
son calls to report that pt had 3 clonic-tonic seizures in less than 1 hour
--- NOTE | 2021-03-22 13:44 | ED.SEIZURE ---
HPI - Seizure General Chief Complaint: Seizure Stated Complaint: SEIZURES Time Seen by Provider: 03/22/21 13:08 Source: patient Mode of arrival: EMS Limitations: no limitations History of Present Illness HPI Narrative: This is a 50 year old female with history of schizophrenia and epilepsy who presents for evaluation of multiple seizures. EMS states family witnessed patient having 3 seizures today. She was postictal on their arrival. Patient is oriented to person, age , and place. She states she is taking her medications as prescribed but she has a bottle of Keppra 1000 mg with 58 tabs prescribed 02/06/21. She states she gets dizzy before her seizures but she denies dizziness currently. She denies any other complaints. Seizure History: Yes (EPILEPSY SINCE CHILDHOOD) Related Data Home Medications Medication Instructions Recorded Confirmed citalopram 40 mg PO DAILY 01/28/21 03/22/21 ergocalciferol (vitamin D2) 50,000 unit PO WEEKLY 01/28/21 03/22/21 levetiracetam 1,000 mg PO BID 01/28/21 03/22/21 Allergies Allergy/AdvReac Type Severity Reaction Status Date / Time No Known Drug Allergies Allergy Mild Unknown Verified 01/28/21 17:20 Review of Systems Review of Systems: All systems reviewed & are unremarkable except as noted in HPI and below PMFSH Past Medical History Medical History Schizophrenia Seizure Uncontrolled seizures UTI (urinary tract infection) Surgical History Surgical History Surgical history unknown Family History Family History Other Unknown family medical history Social History Social History Social History: The patient stated that she has a son and 2 daughters. The patient tells me that she is on disability and does receive SSI. She tells me that she is and relies on her family to take care of her. She is listed as a full code. She denies any alcohol tobacco or illicit drugs. Smoking status: Never smoker Alcohol intake: never Substance use: never Substance use type: does not use Gender identity (if verbalized by the patient): Female Spiritual care concerns: No Exam Const: General: no acute distress and alert Orientation/consciousness: patient oriented x3 Eyes: EOM: EOMs intact bilaterally Chest: Chest palpation & inspection: normal inspection of the chest Resp: Effort & Inspection: normal respiratory effort and no retractions Auscultation: clear to auscultation bilaterally Cardio: Rate: regular rate Rhythm: regular rhythm Heart sounds: no murmurs GI: GI Palp: Yes Soft to palpation, No Tenderness to palpation present (GI) and No Guarding due to palpation present (GI) Auscultation: normal bowel sounds Skin: General skin exam: normal color Rashes: no rashes Neuro: General: patient oriented x3 and moves all extremities Psych: Mental Status: mental status grossly normal Affect: normal affect Course Consultations Consultation #1: I discussed with Dr. Hernandez patient' case. He states he has known for several years. He recommends observation but no other changes. I discussed with Beata vargas who accepts patient to service. Date: 03/22/21 Time: 17:48 Vital Signs Vital signs: Vital Signs Temperature 98 F 03/22/21 12:51 Pulse Rate 96 03/22/21 12:51 Respiratory Rate 18 03/22/21 12:51 Pulse Oximetry 97 03/22/21 12:51 Temperature 98.4 F 03/22/21 21:37 Pulse Rate 77 03/22/21 21:37 Respiratory Rate 16 03/22/21 21:37 Blood Pressure 111/72 03/22/21 21:37 Pulse Oximetry 100 03/22/21 21:37 MDM - Seizure Lab Data Attestation: I reviewed the patient's lab results. Result diagrams: 03/22/21 14:27 03/22/21 14:27 Labs: Lab Results 03/22/21 03/22/21 03/22/21 Range/Units
[2021-03-22 14:16] LABS: Add Urine Microscopic? YES; Appearance Urine Clear (Clear); Bacteria Urine Trace /hpf; Bilirubin Urine Negative (Negative); Blood Urine Negative (Negative); Color Urine Yellow (Yellow); Glucose Urine UA Negative (Negative); Ketones Urine Negative (Negative); Leukocyte Esterase Ur 1+ LEU/UL (Negative); Mucus Urine Rare /lpf; Nitrate Urine Negative (Negative); Protein Urine 1+ mg/dL (Negative); RBC Urine 0-2 /hpf (0-2); Specific Grav Ur 1.021 (1.001-1.035); Squamous Epithelial Cell Urine Rare /hpf (Few); Urobilinogen Urine Negative mg/dL (<2.0); WBC Urine 0-3 /hpf
[2021-03-22 14:41] LABS: Basophils Percent Auto 0.3 % (0.2-1.2); Eosinophils Percent Auto 0.2 % (0-4.4); Hematocrit 35.3 % (37.0-47.0); Hemoglobin 11.7 g/dL (12.0-15.0); Immature Granulocyte Absolute 0.01 K/mm3 (0.00-0.031); Immature Granulocyte Percent A 0.2 % (0-0.5); Lymphocytes Absolute Auto 1.24 K/mm3 (0.9-3.2); Lymphocytes Percent Auto 20.7 % (18.3-44.2); Mean Corpuscular HGB Conc 33.1 g/dl (32-36); Mean Corpuscular Hemoglobin 27.9 pg (26-34); Mean Platelet Volume 11.5 fl (7.4-10.4); Monocytes Absolute Auto 0.5 K/mm3 (0.1-0.6); Monocytes Percent Auto 7.8 % (2.6-8.5); Neutrophils Absolute Auto 4.2 K/mm3 (1.3-6.7); Neutrophils Percent Auto 70.8 % (45.5-73.1); Platelet Count Result 153 k/mm3 (150-375); Red Cell Distribution Width 12.2 % (11.5-14.5)
[2021-03-22 14:50] LABS: Ethanol < 10 mg/dL (<10)
[2021-03-22 14:52] LABS: Alanine Aminotransferase 19 U/L (4-35); Albumin Level 4.3 g/dL (3.5-5.1); Alkaline Phosphatase 72 U/L (38-126); Anion Gap 4 mmol/L (8-16); Aspartate Amino Transferase 25 U/L (14-36); Bilirubin,Total 0.1 mg/dL (0.2-1.3); Blood Urea Nitrogen 11 mg/dL (7-17); Calcium 9.7 mg/dL (8.4-10.2); Carbon Dioxide 26 mmol/L (22-30); Chloride 109 mmol/L (98-107); Estimated CRCL calculation 59 ml/min; Estimated Glomerular Filt Rate > 60; Glucose 108 mg/dL (65-105); Sodium 139 mmol/L (137-145)
[2021-03-22 15:05] LABS: Amphetamine Screen Urine Negative (Negative); Barbiturate Screen Urine Negative (Negative); Benzodiazepines Screen Urine Negative (Negative); Cannabinoid Screen Urine Negative (Negative); Cocaine Screen Urine Negative (Negative); Methadone Screen Urine Negative (Negative); Opiate Screen Urine Negative (Negative); Phencyclidine Screen Urine Negative (Negative)
--- NOTE | 2021-03-22 15:19 | PC.NURSE ---
son called per dr lopez request. son states that he can come to ed after a car is avail at 1630. dr. lopez updated
--- NOTE | 2021-03-22 18:37 | PC.NURSE ---
[facility] faxed and [facility] notified
--- NOTE | 2021-03-22 18:58 | PC.NURSE ---
Report given to Machelle on [facility]
--- NOTE | 2021-03-22 19:43 | ADMGEN ---
This patient, Niya Brown, was admitted to Medical Room [facility]– [place] at 1915. Patient/family oriented to hospital policies and general routines including ID bracelet, bed and alarms, visiting hours, pain management, procedures, bathroom and other care routines, personal items, smoking policy, room service/diet, and visiting hours. Information on how to activate the Rapid Response Team has been discussed. Patient/Family are encouraged to report perceived risks to care and to ask questions if they do not understand what they are told or what they should do.
--- NOTE | 2021-03-22 22:30 | PM.IMHP ---
H&P: HPI History of Present Illness Date/Time: 03/22/21 22:30 Chief Complaint: Seizures. Narrative: This is a 50-year-old female with history of epilepsy and schizophrenia who presented to the emergency department earlier today via EMS from home for evaluation after she reportedly had 3 witnessed seizures at home. She may be a bit postictal on exam but is otherwise not a good historian and I think that is due to her chronic underlying psychiatric illnesses. She did not recall having seizures today but does remember being brought in by the ambulance. As such a majority of the following is obtained via a review of her electronic medical records. She has had epilepsy since childhood and has been followed by Dr. Hernandez for many years. She is prescribed levetiracetam and states compliance with that however it is my understanding that a bottle of such was found containing 58 tablets and that was filled on 02/06/2021. In any regard she reportedly had 3 witnessed seizures today, each lasting approximately 2 to 3 minutes, and she was brought in for evaluation. Dr. Hernandez wishes her to be admitted overnight for observation and to make sure she does not continue to have seizures overnight. She is alert at the time my evaluation and is somewhat interactive however a majority of my questions go on answered or are answered inappropriately and off topic. She has no current complaints. Review of Systems Review of Systems: Narrative: Twelve systems were reviewed but unable to be obtained accurately given her condition as detailed above. Instead of answering questions she starts speaking about something unrelated and does not make her way back to answer the question. ON LICENSE OF [facility] Past Medical History Medical History (Updated 03/22/21 @ 23:44 by Beata Webb PA-C) Depression with anxiety Epilepsy Schizophrenia Surgical History Surgical History (Updated 03/22/21 @ 23:41 by Beata Webb PA-C) History of hysterectomy For uterine fibroids. Family History Family History Other Unknown family medical history Social History Social History (Updated 03/22/21 @ 23:42 by Beata Webb PA-C) Social History: The patient stated that she has a son and 2 daughters and I believe she lives at home with 1 of her sons in [place]. She is on disability. No alcohol, tobacco, or illicit substance use. Code status: Full code. Meds Home Medications and Allergies Home Medications Medication Instructions Recorded Confirmed Type citalopram 40 mg PO DAILY 01/28/21 03/22/21 History ergocalciferol (vitamin D2) 50,000 unit PO WEEKLY 01/28/21 03/22/21 History levetiracetam 1,000 mg PO BID 01/28/21 03/22/21 History Allergies Allergy/AdvReac Type Severity Reaction Status Date / Time No Known Drug Allergies Allergy Mild Unknown Verified 01/28/21 17:20 Vital Signs Vital Signs - 24 hr 03/22/21 12:51 03/22/21 13:05 03/22/21 13:06 Temperature 98 F Pulse Rate 96 102 H Respiratory Rate 18 Blood Pressure Pulse Oximetry 97 96 03/22/21 13:13 03/22/21 13:15 03/22/21 13:30 Temperature Pulse Rate 98 100 96 Respiratory Rate 15 15 19 Blood Pressure Pulse Oximetry 03/22/21 13:45 03/22/21 13:52 03/22/21 14:00 Temperature Pulse Rate 94 91 94 Respiratory Rate 21 H 21 H 19 Blood Pressure 113/77 109/77 Pulse Oximetry 97 97 97 03/22/21 14:01 03/22/21 14:15 03/22/21 14:16 Temperature Pulse Rate 96 91 97 Respiratory Rate 19 19 19 Blood Pressure 111/75 Pulse Oximetry 97 96 96 03/22/21 14:30 03/22/21 14:31 03/22/21 14:45 Temperature Pulse Rate 97 93 90 Respiratory Rate 18 19 20 Blood Pressure 109/83 111/77 Pulse Oximetry 97 03/22/21 14:46 03/22/21 15:00 03/22/21 15:01 Temperature Pulse Rate 93 88 88 Respiratory Rate 19 19 18 Blood Pressure 110/79 Pulse Oximetry 97 97 97 03/22/21 15:15 03/22/21 15:16 05
[2021-03-23] VITALS: PULSE 94
[2021-03-23 04:00] VITALS: PULSE 108
[2021-03-23 06:00] VITALS: BP 106/65; PULSE 98; RESP 18; TEMP 36.6; O2SAT 96
[2021-03-23 08:00] VITALS: PULSE 89
[2021-03-23] MEDS: levETIRAcetam 500 MG TABLET 1000 MG PO (09:31)
[2021-03-23] MEDS: CITALOPRAM HYDROBROMIDE 20 MG TABLET 40 MG PO (09:31)
--- NOTE | 2021-03-23 11:44 | WPDNEURCNPN ---
Assessment and Plan Assessment and plan (1) Breakthrough seizure: Code(s): G40.919 - Epilepsy, unspecified, intractable, without status epilepticus Status: Acute Additional Plan epilepsy with intermittent recurrence, complicated by the underlying schizophrenia, will wait for the Keppra level before making any adjustment in the dosage Consult date: 03/23/21 Time Seen: 11:00 HPI: Niya Brown is a 50 year old female 50 years old has been admitted to [facility] through the emergency room for the complaints of recurrence of the seizure. 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 During the previous hospitalization her Keppra levels were high and as I have been reported the levels have been drawn this time and also she was carrying the old prescription so will wait for the new results before any adjustments are made Review of Systems Review of Systems: All systems reviewed & are unremarkable except as noted in HPI and below PMFSH Past Medical History Medical History Depression with anxiety Epilepsy Schizophrenia Surgical History Surgical History History of hysterectomy For uterine fibroids. Family History Family History Other Unknown family medical history Social History Social History Social History: The patient stated that she has a son and 2 daughters and I believe she lives at home with 1 of her sons in [place]. She is on disability. No alcohol, tobacco, or illicit substance use. Code status: Full code. Meds Home Medications and Allergies Home Medications Medication Instructions Recorded Confirmed Type citalopram 40 mg PO DAILY 01/28/21 03/22/21 History ergocalciferol (vitamin D2) 50,000 unit PO WEEKLY 01/28/21 03/22/21 History levetiracetam 1,000 mg PO BID 01/28/21 03/22/21 History Allergies Allergy/AdvReac Type Severity Reaction Status Date / Time No Known Drug Allergies Allergy Mild Unknown Verified 01/28/21 17:20 Vital Signs Vital Signs - 24 hr 03/22/21 12:51 03/22/21 13:05 03/22/21 13:06 Temperature 36.6 C Pulse Rate 96 102 H Respiratory Rate 18 Blood Pressure Pulse Oximetry 97 96 03/22/21 13:13 03/22/21 13:15 03/22/21 13:30 Temperature Pulse Rate 98 100 96 Respiratory Rate 15 15 19 Blood Pressure Pulse Oximetry 03/22/21 13:45 03/22/21 13:52 03/22/21 14:00 Temperature Pulse Rate 94 91 94 Respiratory Rate 21 H 21 H 19 Blood Pressure 113/77 109/77 Pulse Oximetry 97 97 97 03/22/21 14:01 03/22/21 14:15 03/22/21 14:16 Temperature Pulse Rate 96 91 97 Respiratory Rate 19 19 19 Blood Pressure 111/75 Pulse Oximetry 97 96 96 03/22/21 14:30 03/22/21 14:31 03/22/21 14:45 Temperature Pulse Rate 97 93 90 Respiratory Rate 18 19 20 Blood Pressure 109/83 111/77 Pulse Oximetry 97 03/22/21 14:46 03/22/21 15:00 03/22/21 15:01 Temperature Pulse Rate 93 88 88 Respiratory Rate 19 19 18 Blood Pressure 110/79 Pulse Oximetry 97 97 97 03/22/21 15:15 03/22/21 15:16 03/22/21 15:30 Temperature Pulse Rate 89 87 86 Respiratory Rate 17 19 18 Blood Pressure 102/73 110/76 Pulse Oximetry 97 97 98 03/22/21 15:31 03/22/21 15:45 03/22/21 15:46 Temperature Pulse Rate 88 84 90 Respiratory Rate 18 14 15 Blood Pressure 109/80 Pulse Oximetry 98 03/22/21 16:00 03/22/21 16:01 03/22/21 16:15 Temperature Pulse Rate 86 85 82 Respiratory Rate 17 17 13 Bl
--- NOTE | 2021-03-23 11:58 | PM.DS ---
DS: Admitting Diagnosis Admitting Diagnosis Admitting Diagnosis: Seizure DS: Discharge Diagnosis Discharge Diagnosis (1) Breakthrough seizure: Code(s): G40.919 - Epilepsy, unspecified, intractable, without status epilepticus Status: Acute (2) Epilepsy: Code(s): G40.909 - Epilepsy, unspecified, not intractable, without status epilepticus Status: Acute (3) Schizophrenia: Code(s): F20.9 - Schizophrenia, unspecified Status: Chronic (4) Depression with anxiety: Code(s): F41.8 - Other specified anxiety disorders Status: Acute DS: Summary Hospital Course Reason for hospitalization: The patient is a 50 year old woman with a history of epilepsy and schizophrenia who presented to the emergency department earlier today via EMS from home for evaluation after she reportedly had 3 witnessed seizures at home. She was prescribed levetiracetam and states compliance with that however it is my understanding that a bottle of such was found containing 58 tablets and that was filled on 02/06/2021. The patient has a history of noncompliance. This is her third admission in the last 3 months. Initial labs were unremarkable, other than slight normocytic anemia Hgb 11.7. CMP unremarkable. UA shows no signs of infection. Urine Drug screen normal. Ethyl Alcohol normal. CT Head showed Stable diffuse cerebellar atrophy, likely secondary to chronic anticonvulsant medication use. She was admitted into the hospital under observation status due to recurrent seizures. She was started back on her home medications as prescribed. She was evaluated by the neurologist, Dr. Hernandez, who is taking care of her for the last 30 years and knows her well. He states she is at her baseline. He does not make any adjustments to her medication regimen at this time. He will be monitoring for her Keppra level to make any adjustments as an outpatient if needed. She is stable at this time to be discharged home with her son she lives with. Patient's son understand agree with the plan all questions answered. Hospital Course: See above Status at Discharge Cognitive/behavioral status at discharge: Stable, improved. Time Spent with Patient Time attestation: Total time spent providing and/or coordinating discharge services: 40 Time spent: Greater than 30 minutes Exam Narrative: Exam Narrative: General: 50-year-old woman sitting up in bed with the nurse at bedside. Appears fatigued. In no acute distress. Skin: No jaundice or cyanosis. Good skin turgor. Neck: Full range of motion. Supple. Respiratory: Lungs are clear to auscultation bilaterally. No bony chest wall tenderness. Cardiovascular: The heart has a regular rate and rhythm without murmur. No carotid bruits. Lower extremities: No lower extremity edema. Distal pulses are easily palpated. No calf tenderness to palpation. Gastrointestinal: The abdomen is soft, nontender and nondistended with active bowel sounds. Psychiatric: Intermittently looks at me and smiles. Will not talk to me, answer any questions. Neurologic: Awake, alert. Moving all extremities. No focal deficits. No facial drooping. DS: Data Data Completed and Pending Labs on day of discharge: Labs from last 24 hours 03/23/21 03/22/21 03/22/21 05:25 14:27 14:27 WBC RBC Hgb Hct MCV MCH MCHC RDW Plt Count MPV Immature Gran % (Auto) Neut % (Auto) Lymph % (Auto) [place] % (Auto) Eos % (Auto) Baso % (Auto) Lymph # (Auto) [place] # (Auto) Eos # (Auto) Baso # (Auto) Abs Immat Gran (auto) Absolute Neuts (auto) Absolute Nucleated RBC Nucleated RBC % Sodium 139 Potassium 4.0 Chloride 109 H Carbon Dioxide 26 Anion Gap 4 L BUN 11 Creatinine 0.70 Estim Creat Clear Calc 59 Estimated GFR > 60 Glucose 108 H Calcium 9.7 Magnesium 2.0 Total Bilirubin 0.
[2021-03-23 12:00] VITALS: PULSE 93
--- NOTE | 2021-03-23 16:10 | PC.NURSE ---
Medication bottles removed from locked closet and placed in belonging bag along with patients discharge paperwork. Medication included one bottle of Keppra and one bottle of Celexa.
[2021-03-27 11:24] LABS: Levetiracetam Keppra 25.4 mcg/mL (12.0-46.0)
--- NOTE | 2021-03-29 12:47 | PC.NURSE ---
Levetiracetam WNL. Results faxed to Dr. Hernandez and Dr. Pena.
== END 2021-03-23 16:15 | disposition home or self-care (01) ==
LOC: ANHED 14:19 → ANH2MED 18:57
PROVIDERS: Physician Assistant; Admitting Provider Family Medicine; Emergency Provider General Practice; PCP Emergency Medicine; Visit Provider Internal Medicine
DX: G40.919 Epilepsy, unspecified, intractable, without status epilepticus (principal); F20.9 Schizophrenia, unspecified; F41.8 Other specified anxiety disorders; Z79.899 Other long term (current) drug therapy
CPT/HCPCS: 36415; 70450; 80053; 80177; 80307; 81001; 81025; 83735; 85025; 93005; 99285; A9270; G0378; G0379

== ENCOUNTER 2021-08-23 20:06 | Emergency (ER) | payer OTHER, SELFPAY ==
[2021-08-23] VITALS (30 sets, daily range): BP systolic 94–99; BP diastolic 64–77; PULSE 67–92; RESP 11–23; TEMP 36.3; O2SAT 95–96
--- NOTE | ~2021-08-23 | XR_ITS ---
EXAMINATION: XR chest 1V portable DATE: 08/23/2021 20:58 INDICATION: Transient alteration of awareness. TECHNIQUE: A single frontal view of the chest was obtained. COMPARISON: Chest single view 02/28/2021 FINDINGS: The chest demonstrates clear lungs without pneumonia, pleural effusion, or pneumothorax. Th e heart size is normal. IMPRESSION: 1. No acute cardiopulmonary disease. Reviewed, dictated and finalized at location A.
--- NOTE | ~2021-08-23 | CT_ITS ---
EXAMINATION: CT brain wo con DATE: 08/23/2021 21:09 INDICATION: Seizure. Confusion. TECHNIQUE: Computed tomography (CT) of the head was performed without intravenous contrast. The mA wa s adjusted according to patient size. Iterative reconstruction technique was employed. The dose-lengt h product was 605.33 mGy-cm. COMPARISON: Head CT 03/22/2021 FINDINGS: There is diffuse atrophy of the cerebellum. There is no intracranial hemorrhage, acute infa rction, or abnormal intracranial mass lesion. The ventricles are normal in size. There is mild mucosa l thickening in the paranasal sinuses. The orbits are normal. There is a small left mastoid effusion. IMPRESSION: 1. Stable diffuse cerebellar atrophy, likely secondary to chronic anticonvulsant medication use. Reviewed, dictated and finalized at location A. IMPRESSION: 1. Stable diffuse cerebellar atrophy, likely secondary to chronic anticonvulsan t medication use.
--- NOTE | 2021-08-23 20:45 | ED.SEIZURE ---
HPI - Seizure General Chief Complaint: Seizure Stated Complaint: SZ Time Seen by Provider: 08/23/21 20:13 Source: patient, RN notes reviewed and old records reviewed Mode of arrival: EMS Limitations: clinical condition History of Present Illness HPI Narrative: This is a 50 year old female with history of epilepsy and schizophrenia who presents for evaluation of seizure. EMS patient was witnessed by family to have seizure like activity . Patient is reported to become rigid and nonresponsive . EMS found patient to be postictal. Patient states she has been taking her medication. She denies urinary incontinence. Patient reports some vertigo but denies headache. Seizure History: Yes (EPILEPSY SINCE CHILDHOOD) Related Data Home Medications Medication Instructions Recorded Confirmed citalopram 40 mg PO DAILY 01/28/21 03/22/21 ergocalciferol (vitamin D2) 50,000 unit PO WEEKLY 01/28/21 03/22/21 levetiracetam 1,000 mg PO BID 01/28/21 03/22/21 Allergies Allergy/AdvReac Type Severity Reaction Status Date / Time No Known Drug Allergies Allergy Mild Unknown Verified 08/23/21 20:21 Review of Systems Review of Systems: All systems reviewed & are unremarkable except as noted in HPI and below PMFSH Past Medical History Medical History Depression with anxiety Epilepsy Schizophrenia Surgical History Surgical History History of hysterectomy For uterine fibroids. Family History Family History Other Unknown family medical history Social History Social History Social History: The patient stated that she has a son and 2 daughters and I believe she lives at home with 1 of her sons in [place]. She is on disability. No alcohol, tobacco, or illicit substance use. Code status: Full code. Exam Const: General: no acute distress and alert Other: oriented to person and place HENMT: Head: normocephalic and atraumatic Face and sinus: face symmetric Mouth: Yes Normal oral and palatal mucosa present, Yes lip normal, Yes oropharynx normal and Yes moist mucous membranes Throat: posterior oropharynx normal Eyes: Pupils: Equal, round and reactive pupils present EOM: EOMs intact bilaterally Resp: Effort & Inspection: normal respiratory effort and no retractions Auscultation: clear to auscultation bilaterally Cardio: Rate: regular rate Rhythm: regular rhythm Heart sounds: no murmurs GI: GI Palp: Yes Soft to palpation, No Tenderness to palpation present (GI) and No Guarding due to palpation present (GI) Auscultation: normal bowel sounds Neuro: General: patient oriented x3, moves all extremities and CN's II-XI intact bilaterally Psych: Mental Status: mental status grossly normal Affect: normal affect Course Reevaluation(s) Reevaluation #1: Patient witnessed to have episode in which she became rigid and staring. This lasted less than 1 minute. She was combative once this stopped. Date: 08/23/21 Time: 20:49 Reevaluation #2: Patient has not had another seizure in ER She is been cooperative. This appears to be patient's baseline for several weeks now. Date: 08/24/21 Time: 04:41 Consultations Consultation #1: I spoke with Dr. Aguilar of neurology who recommends increasing keppra to 1500 mg BID if she is compliant. She does not need to be admitted at this time. Date: 08/24/21 Time: 00:20 Vital Signs Vital signs: Vital Signs Temperature 97.4 F L 08/23/21 20:15 Pulse Rate 74 08/23/21 20:15 Respiratory Rate 17 08/23/21 20:15 Blood Pressure 98/69 L 08/23/21 20:15 Pulse Oximetry 96 08/23/21 20:15 Temperature 96.9 F L 08/24/21 05:01 Pulse Rate 93 08/24/21 06:01 Respiratory Rate 17 08/24/21 06:01 Blood Pressure 100/62 08/24/21 06:00 Pulse Oximetry 98
[2021-08-23] MEDS: LORazepam INJ (*CRX) 2 MG/ML VIAL 1 MG IV PUSH (20:50)
[2021-08-23] MEDS: levETIRAcetam 1000MG/NACL100ML 1,000 MG/100 ML BAG 400 MG IVPB (20:51)
--- NOTE | 2021-08-23 20:58 | PC.NURSE ---
Xray completed at bedside. Pt off floor to CT scan. Keppra infusing at this time, Dr Noel ok with patient to CT
[2021-08-23 21:00] LABS: Basophils Percent Auto 0.5 % (0.2-1.2); Eosinophils Absolute Auto 0.1 K/mm3 (0-0.3); Eosinophils Percent Auto 1.4 % (0-4.4); Hematocrit 34.6 % (37.0-47.0); Hemoglobin 11.4 g/dL (12.0-15.0); Immature Granulocyte Absolute 0.01 K/mm3 (0.00-0.031); Immature Granulocyte Percent A 0.2 % (0-0.5); Lymphocytes Absolute Auto 1.79 K/mm3 (0.9-3.2); Lymphocytes Percent Auto 28.5 % (18.3-44.2); Mean Corpuscular HGB Conc 32.9 g/dl (32-36); Mean Corpuscular Hemoglobin 28.6 pg (26-34); Mean Corpuscular Volume 86.7 fl (80-100); Mean Platelet Volume 10.9 fl (7.4-10.4); Monocytes Absolute Auto 0.7 K/mm3 (0.1-0.6); Monocytes Percent Auto 11.8 % (2.6-8.5); Neutrophils Absolute Auto 3.6 K/mm3 (1.3-6.7); Neutrophils Percent Auto 57.6 % (45.5-73.1); Platelet Count Result 182 k/mm3 (150-375); Red Blood Count 3.99 M/mm3 (4.2-5.4); Red Cell Distribution Width 12.7 % (11.5-14.5); White Blood Count 6.3 K/mm3 (4.5-10.0)
[2021-08-23 21:11] LABS: Alanine Aminotransferase 20 U/L (4-35); Albumin Level 4.6 g/dL (3.5-5.1); Alkaline Phosphatase 67 U/L (38-126); Anion Gap 8 mmol/L (8-16); Aspartate Amino Transferase 26 U/L (14-36); Bilirubin,Total 0.4 mg/dL (0.2-1.3); Blood Urea Nitrogen 10 mg/dL (7-17); Calcium 10.2 mg/dL (8.4-10.2); Carbon Dioxide 27 mmol/L (22-30); Chloride 106 mmol/L (98-107); Estimated Glomerular Filt Rate > 60; Glucose 110 mg/dL (65-110); Potassium 3.9 mmol/L (3.4-5.0); Sodium 141 mmol/L (137-145)
--- NOTE | 2021-08-23 21:36 | PC.NURSE ---
Called son for update. Son states patient has not had a seizure in the last two weeks since he has returned home, but unsure when her last seizure was. States she is taking her antiseizure medications as prescribes. Baseline confusion intermittently.
--- NOTE | 2021-08-23 22:16 | PC.NURSE ---
Called son requesting that he come in to see his mother. Per Dr Noel, we need to assess if this is patient's baseline. Gave update. Son is coming from [place] at this time.
[2021-08-23 22:59] LABS: Add Urine Microscopic? NO; Appearance Urine Clear (Clear); Bilirubin Urine Negative (Negative); Blood Urine Negative (Negative); Color Urine Yellow (Yellow); Glucose Urine UA Negative (Negative); Ketones Urine Negative (Negative); Leukocyte Esterase Ur Negative LEU/UL (Negative); Nitrate Urine Negative (Negative); Protein Urine Negative (Negative); Specific Grav Ur 1.012 (1.001-1.035); Urobilinogen Urine Negative mg/dL (<2.0)
[2021-08-23 23:12] LABS: Barbiturate Screen Urine Negative (Negative); Benzodiazepines Screen Urine Negative (Negative)
[2021-08-23 23:17] LABS: Amphetamine Screen Urine Negative (Negative); Cannabinoid Screen Urine Negative (Negative); Methadone Screen Urine Negative (Negative); Opiate Screen Urine Negative (Negative); Phencyclidine Screen Urine Negative (Negative)
[2021-08-24] VITALS (53 sets, daily range): BP systolic 77–102; BP diastolic 59–89; PULSE 62–93; RESP 11–23; TEMP 36.1–36.4; O2SAT 95–100
[2021-08-24] MEDS: SODIUM CHLORIDE 0.9% IV 1,000 ML 999 ML IV CONT (04:37)
--- NOTE | 2021-08-24 04:50 | PC.NURSE ---
Pt dressed in clothing from home. ED MD Noel spoke to pt's son on phone, who reports he will be here to pick her up shortly.
--- NOTE | 2021-08-24 05:59 | PC.NURSE ---
Per ED administrative secretary, pt's son called to check on status of pt and if she was ready for d/c.
[2021-08-24 16:42] LABS: Cocaine Screen Urine Negative (Negative)
[2021-08-28 13:54] LABS: Levetiracetam Keppra 35.8 mcg/mL (12.0-46.0)
== END 2021-08-24 06:14 | disposition home or self-care (01) ==
PROVIDERS: Emergency Provider General Practice; PCP Emergency Medicine
DX: G40.909 Epilepsy, unspecified, not intractable, without status epilepticus (principal); F41.8 Other specified anxiety disorders; F20.9 Schizophrenia, unspecified
CPT/HCPCS: 36415; 70450; 71045; 80053; 80177; 80307; 81003; 85025; 96361; 96374; 96375; 99284; J1953; J2060; J7030

== ENCOUNTER 2021-10-28 14:35 | Emergency (ER) | payer OTHER, SELFPAY ==
[2021-10-28] VITALS (19 sets, daily range): BP systolic 94–112; BP diastolic 56–73; PULSE 62–93; RESP 12–18; TEMP 36.4–36.6; O2SAT 99–100
--- NOTE | ~2021-10-28 | XR_ITS ---
XR chest 1V portable 10/28/2021 14:34 Indication: Altered mental status. Seizures. Procedure: AP portable chest Comparison: Comparison to multiple prior studies sequentially, with oldest reviewed study dated 08/09. Findings: Heart size normal. Left basilar atelectasis. No focal pneumonia, edema, pleural effusion or pneumothorax. No acute osseous abnormality. Impression: 1: Left basilar atelectasis. Reviewed, dictated and finalized at location A. S [employer] REPRESENTATIVE Impression: 1: Left basilar atelectasis.
--- NOTE | 2021-10-28 14:20 | ECG_ITS ---
Measurements Intervals [place] Rate: 61 P: 54 AL: 207 QRS: 1 QRSD: 74 T: 50 QT: 399 QTc: 405 Interpretive Statements SINUS RHYTHM INCOMPLETE RIGHT BUNDLE BRANCH BLOCK BORDERLINE T WAVE ABNORMALITY- ANTERIOR LEADS BASELINE ARTIFACT- I, II, III, AVR, AVL, AVF, V1-V6 BORDERLINE ECG Electronically Signed On 10-29-2021 5:38:54 TANDEM OPERATOR by Jay Dean D.O.
[2021-10-28 15:12] LABS: Basophils Percent Auto 0.2 % (0.2-1.2); Eosinophils Percent Auto 0.2 % (0-4.4); Hematocrit 37.3 % (37.0-47.0); Hemoglobin 12.3 g/dL (12.0-15.0); Immature Granulocyte Absolute 0.03 K/mm3 (0.00-0.031); Immature Granulocyte Percent A 0.3 % (0-0.5); Lymphocytes Absolute Auto 0.89 K/mm3 (0.9-3.2); Lymphocytes Percent Auto 9.7 % (18.3-44.2); Mean Corpuscular Hemoglobin 28.2 pg (26-34); Mean Corpuscular Volume 85.6 fl (80-100); Mean Platelet Volume 11.7 fl (7.4-10.4); Monocytes Absolute Auto 0.7 K/mm3 (0.1-0.6); Monocytes Percent Auto 7.9 % (2.6-8.5); Neutrophils Absolute Auto 7.5 K/mm3 (1.3-6.7); Neutrophils Percent Auto 81.7 % (45.5-73.1); Platelet Count Result 149 k/mm3 (150-375); Red Blood Count 4.36 M/mm3 (4.2-5.4); White Blood Count 9.1 K/mm3 (4.5-10.0)
[2021-10-28] MEDS: levETIRAcetam 1000MG/NACL100ML 1,000 MG/100 ML BAG 400 MG IVPB (15:12)
[2021-10-28] MEDS: SODIUM CHLORIDE 0.9% IV 1,000 ML 999 ML IV CONT (15:12)
[2021-10-28 15:26] LABS: Alanine Aminotransferase 24 U/L (4-35); Albumin Level 4.7 g/dL (3.5-5.1); Alkaline Phosphatase 64 U/L (38-126); Anion Gap 4 mmol/L (8-16); Aspartate Amino Transferase 28 U/L (14-36); Bilirubin,Total 0.3 mg/dL (0.2-1.3); Blood Urea Nitrogen 14 mg/dL (7-17); Calcium 10.2 mg/dL (8.4-10.2); Carbon Dioxide 25 mmol/L (22-30); Chloride 110 mmol/L (98-107); Estimated Glomerular Filt Rate > 60; Glucose 99 mg/dL (65-110); Sodium 139 mmol/L (137-145)
[2021-10-28 15:47] LABS: Acetaminophen < 10 ug/mL (10-30); Ethanol < 10 mg/dL (<10)
[2021-10-28 15:56] LABS: Thyroid Stimulating Hormone 0.985 uIU/mL (0.465-4.680)
[2021-10-28 16:40] LABS: Add Urine Microscopic? YES; Appearance Urine Clear (Clear); Bilirubin Urine Negative (Negative); Blood Urine Negative (Negative); Color Urine Yellow (Yellow); Glucose Urine UA Negative (Negative); Ketones Urine Negative (Negative); Leukocyte Esterase Ur 2+ LEU/UL (Negative); Mucus Urine Rare /lpf; Nitrate Urine Negative (Negative); Protein Urine Negative (Negative); RBC Urine 0-2 /hpf (0-2); Specific Grav Ur 1.018 (1.001-1.035); Squamous Epithelial Cell Urine Rare /hpf (Few)
[2021-10-28 16:50] LABS: Amphetamine Screen Urine Negative (Negative); Barbiturate Screen Urine Negative (Negative); Benzodiazepines Screen Urine Negative (Negative); Cannabinoid Screen Urine Negative (Negative); Cocaine Screen Urine Negative (Negative); Methadone Screen Urine Negative (Negative); Opiate Screen Urine Negative (Negative); Phencyclidine Screen Urine Negative (Negative)
--- NOTE | 2021-10-28 18:22 | PC.NURSE ---
pts son contacted. will come pick pt up. pt assisted in dressing
--- NOTE | 2021-10-28 19:51 | ED.GENADULT ---
HPI - General Adult General Chief complaint: Seizure Stated complaint: Seizure Source: patient Mode of arrival: EMS Limitations: no limitations History of Present Illness HPI narrative: Patient is a 30-year-old female with chief complaint of seizure activity prior to arrival. Patient reports that she has history of seizures for many years and takes Keppra daily. Patient reports that she is taking her medications as instructed. Patient reports that she has seizures frequently despite medications and her neurologist are aware. Patient reports that is what she usually is never alone and does not drive. Patient denies falling and hitting her head during her episode. She reports she did have some nausea earlier today but denies any abdominal pain, nausea, headache, changes to vision or hearing, chest pain, shortness of breath or any other symptoms at this time. Patient reports that she feels comfortable. Patient reports that she lives with her son. She denies any complaints at this time. Patient denies any fevers, cough, urinary symptoms or other signs of infection. Related Data Home Medications Medication Instructions Recorded Confirmed citalopram 40 mg PO DAILY 01/28/21 03/22/21 ergocalciferol (vitamin D2) 50,000 unit PO WEEKLY 01/28/21 03/22/21 levetiracetam 1,000 mg PO BID 01/28/21 03/22/21 Allergies Allergy/AdvReac Type Severity Reaction Status Date / Time No Known Drug Allergies Allergy Mild Unknown Verified 08/23/21 20:21 Review of Systems Review of Systems: CONSTITUTIONAL: Denies fever, chills, or sweats. EYES: Denies visual changes, redness, or discharge. ENT: Denies rhinorrhea, congestion, sore throat, or otalgia. CARDIOVASCULAR: Denies chest pain, palpitations, or edema. RESPIRATORY: Denies cough or dyspnea. GASTROINTESTINAL: Denies abdominal pain, nausea, vomiting, or diarrhea. GENITOURINARY: Denies dysuria or hematuria. SKIN: Denies rash or itching. MUSCULOSKELETAL: Denies back pain, joint pain, or myalgia. NEUROLOGIC: Reports seizure denies headache, numbness, dizziness, or weakness. PSYCHIATRIC: Denies anxiety or depression. [facility] Past Medical History Medical History Depression with anxiety Epilepsy Schizophrenia Surgical History Surgical History History of hysterectomy For uterine fibroids. Family History Family History Other Unknown family medical history Social History Social History Social History: The patient stated that she has a son and 2 daughters and I believe she lives at home with 1 of her sons in [place]. She is on disability. No alcohol, tobacco, or illicit substance use. Code status: Full code. Exam Narrative: GENERAL: Well-appearing, well-nourished, and in no acute distress. HEAD: Normocephalic, atraumatic. EYES: PERRLA and EOMI. CHEST: Clear to auscultation. No respiratory distress. No wheezes rales or rhonchi HEART: Regular rate and rhythm. No murmur heard. Normal peripheral pulses. ABDOMEN: Soft, nontender, nondistended, normal active bowel sounds. EXTREMITIES: Normal range of motion. No edema. SKIN: Warm, dry, no rash. NEURO: No focal deficits. Alert and oriented to person and situation. Patient seen simple minded, but answers questions appropriately. Follows commands. PSYCH: Normal mood and affect. Course Vital Signs Vital signs: Vital Signs Temperature 97.9 F 10/28/21 11:55 Pulse Rate 76 10/28/21 11:55 Respiratory Rate 18 10/28/21 11:55 Blood Pressure 101/67 10/28/21 11:55 Pulse Oximetry 100 10/28/21 11:55 Temperature 97.5 F L 10/28/21 14:01 Pulse Rate 65 10/28/21 19:02 Respiratory Rate 14 10/28/21 19:02 Blood Pressure 94/56 L 10/28/21 14:01 Pulse Oximetry 100 10/28/21 15:49 Medical Decision Making
== END 2021-10-28 20:24 | disposition home or self-care (01) ==
PROVIDERS: Physician Assistant; Emergency Provider Emergency Medicine; PCP Emergency Medicine
DX: G40.909 Epilepsy, unspecified, not intractable, without status epilepticus (principal)
CPT/HCPCS: 36415; 71045; 80053; 80307; 81001; 84443; 85025; 93005; 96361; 96374; 99284; J1953; J7030

== ENCOUNTER 2021-11-04 12:59 | Emergency (ER) | payer OTHER, SELFPAY ==
[2021-11-04] VITALS (8 sets, daily range): BP systolic 90–110; BP diastolic 69–76; PULSE 76–94; RESP 12–29; TEMP 37.1–37.3; O2SAT 99–100
--- NOTE | 2021-11-04 13:14 | ECG_ITS ---
Measurements Intervals [place] Rate: 76 P: 85 KS: 143 QRS: 12 QRSD: 71 T: 31 QT: 358 QTc: 403 Interpretive Statements SINUS RHYTHM INCOMPLETE RIGHT BUNDLE BRANCH BLOCK NONSPECIFIC T-WAVE ABNORMALITY- INFERIOR LEADS BASELINE ARTIFACT- I, II, III, AVR, AVL, AVF, V1-V6 BORDERLINE ECG Electronically Signed On 11-04-2021 16:56:55 [employer]NAGER by Jay Dean D.O.
--- NOTE | 2021-11-04 13:29 | ED.AMS ---
HPI - Altered Mental Status General Chief Complaint: Altered Mental Status Stated Complaint: confusion Time Seen by Provider: 11/04/21 13:18 Source: patient and EMS Mode of arrival: EMS Limitations: altered mental status History of Present Illness HPI narrative: Patient is an 50-year-old male brought in by EMS due to altered mental status, described as confusion, was wandering on the street and was knocking at someone else's house. When EMS ask why she is there her answer was I do not know . Patient has a history of schizophrenia and seizures. Patient has a history of altered mental status. Patient has had 4 CT scan of her head within this past year, most recent one was 2 months ago, and all did not show any acute intracranial process. Patient was recently seen here last week due to seizure. Upon arrival patient is alert and awake and oriented x3 but confused on why she was at someone else's house or wandering the streets. I asked another provider who recently saw her last time she was here and states that her answers were basically the same, does not know her address, where she lives, and usually would not answer queries appropriately or correctly. Patient denies any headache, dizziness, chest pain, shortness of breath, abdominal pain, nausea, vomiting, diarrhea, urinary symptoms, fever or chills. Related Data Home Medications Medication Instructions Recorded Confirmed citalopram 40 mg PO DAILY 01/28/21 03/22/21 ergocalciferol (vitamin D2) 50,000 unit PO WEEKLY 01/28/21 03/22/21 levetiracetam 1,000 mg PO BID 01/28/21 03/22/21 Allergies Allergy/AdvReac Type Severity Reaction Status Date / Time No Known Drug Allergies Allergy Mild Unknown Verified 11/04/21 13:21 Review of Systems Review of Systems: All systems reviewed & are unremarkable except as noted in HPI and below Constitutional: Constitutional: Denies body ache(s), Denies chills, Denies excessive sweating, Denies fatigue, Denies fever(s), Denies headache(s), Denies lethargy, Denies malaise, Denies weakness and Denies weight loss Eyes: Eyes: Denies blurry vision, Denies change in vision and Denies loss of vision ENT: Denies dizziness, Denies ear discharge, Denies headache(s), Denies lip swelling, Denies epistaxis, Denies nasal congestion, Denies neck pain, Denies throat swelling and Denies tongue swelling Cardiovascular: Cardiovascular: Denies chest pain, Denies chest pain at rest, Denies chest pain with activity, Denies diaphoresis, Denies rapid heart rate, Denies edema, Denies irregular heart rhythm, Denies lightheadedness, Denies palpitations, Denies dyspnea and Denies dyspnea on exertion Respiratory: Respiratory: Denies chest congestion, Denies cough, Denies hemoptysis, Denies dyspnea and Denies dyspnea on exertion Gastrointestinal: Gastrointestinal: Denies abdominal pain, Denies melena, Denies hematochezia, Denies diarrhea, Denies nausea, Denies vomiting and Denies hematemesis Musculoskeletal: Musculoskeletal: Denies abnormal gait, Denies deformity, Denies joint swelling, Denies limited range of motion, Denies neck pain and Denies numbness Neurologic: Denies Abnormal speech present, Denies abnormal gait, Denies confusion, Denies dizziness, Denies headache(s), Denies focal weakness, Denies loss of vision, Denies numbness, Denies Other visual disturbances, Denies Sensory deficit (Neuro) and Denies weakness Psychiatric: Psychiatric: Denies confusion, Denies depression, Denies auditory hallucinations, Denies homicidal ideation and Denies suicidal ideation Endocrine: Endocrine: Denies cold intolerance, Denies excessive sweating, Denies fatigue, Denies heat intolerance and Denies palpitations Hematologic/Lymphatic: Hematologic/Lymphatic: Denies easy bleeding and Denies easy bruising Allergic/Immunologic: Allergic/Immunologic: Denies lip swelling, Denies throat swelling and Denies tongue swelling PMFSH Past Medical History Medical History (Reviewed 11/04/21 @ 13:33 by Rg
[2021-11-04 13:35] LABS: Basophils Percent Auto 0.6 % (0.2-1.2); Eosinophils Absolute Auto 0.1 K/mm3 (0-0.3); Eosinophils Percent Auto 2.1 % (0-4.4); Hematocrit 36.8 % (37.0-47.0); Hemoglobin 12.1 g/dL (12.0-15.0); Immature Granulocyte Absolute 0.02 K/mm3 (0.00-0.031); Immature Granulocyte Percent A 0.4 % (0-0.5); Lymphocytes Absolute Auto 1.29 K/mm3 (0.9-3.2); Lymphocytes Percent Auto 24.2 % (18.3-44.2); Mean Corpuscular HGB Conc 32.9 g/dl (32-36); Mean Corpuscular Volume 85.2 fl (80-100); Mean Platelet Volume 11.3 fl (7.4-10.4); Monocytes Absolute Auto 0.5 K/mm3 (0.1-0.6); Monocytes Percent Auto 8.4 % (2.6-8.5); Neutrophils Absolute Auto 3.4 K/mm3 (1.3-6.7); Neutrophils Percent Auto 64.3 % (45.5-73.1); Platelet Count Result 175 k/mm3 (150-375); Red Blood Count 4.32 M/mm3 (4.2-5.4); White Blood Count 5.3 K/mm3 (4.5-10.0)
[2021-11-04 13:57] LABS: Add Urine Microscopic? YES; Appearance Urine Clear (Clear); Bacteria Urine Trace /hpf; Bilirubin Urine Negative (Negative); Blood Urine Negative (Negative); Color Urine Yellow (Yellow); Glucose Urine UA Negative (Negative); Ketones Urine Negative (Negative); Leukocyte Esterase Ur 3+ LEU/UL (Negative); Mucus Urine Rare /lpf; Nitrate Urine Negative (Negative); Protein Urine Negative (Negative); Specific Grav Ur 1.016 (1.001-1.035); Squamous Epithelial Cell Urine Occasional /hpf (Few); Urobilinogen Urine Negative mg/dL (<2.0)
[2021-11-04 15:00] LABS: Troponin I < 0.012 ng/mL (0.000-0.034)
[2021-11-04 15:30] LABS: Alanine Aminotransferase 22 U/L (4-35); Albumin Level 4.4 g/dL (3.5-5.1); Alkaline Phosphatase 56 U/L (38-126); Anion Gap 7 mmol/L (8-16); Aspartate Amino Transferase 28 U/L (14-36); Bilirubin,Total 0.3 mg/dL (0.2-1.3); Blood Urea Nitrogen 13 mg/dL (7-17); Calcium 10.2 mg/dL (8.4-10.2); Carbon Dioxide 27 mmol/L (22-30); Chloride 105 mmol/L (98-107); Estimated CRCL calculation 52 ml/min; Estimated Glomerular Filt Rate > 60; Glucose 98 mg/dL (65-110); Potassium 3.8 mmol/L (3.4-5.0); Sodium 139 mmol/L (137-145)
[2021-11-04] MEDS: CEPHALEXIN 500 MG CAPSULE PO (15:51)
== END 2021-11-04 18:59 | disposition home or self-care (01) ==
PROVIDERS: Emergency Medicine; Emergency Provider Emergency Medicine; PCP Emergency Medicine
DX: R41.0 Disorientation, unspecified (principal); N39.0 Urinary tract infection, site not specified; G40.909 Epilepsy, unspecified, not intractable, without status epilepticus; F41.8 Other specified anxiety disorders; F20.9 Schizophrenia, unspecified; I45.10 Unspecified right bundle-branch block; R94.31 Abnormal electrocardiogram [ECG] [EKG]
CPT/HCPCS: 36415; 51701; 80053; 81001; 84484; 85025; 87086; 93005; 96365; 99284; A9270; J0696